=== PATIENT | male | born 1950 | race Caucasian/White ===

== ENCOUNTER 2020-06-26 06:34 | Outpatient (REF) | payer MEDICARE, SELFPAY ==
[2020-06-26 07:10] LABS: MANUAL DIFF FLAG NO
[2020-06-26 07:23] LABS: Basophils Percent Auto 0.2 % (0-2); Eosinophils Percent Auto 0.5 % (0-4); Hematocrit 42.1 % (42-52); Hemoglobin 14.4 g/dl (14.0-18.0); Imm Gran Abs Auto 0.02 X10*3/uL (0.00-0.03); Imm Gran Pct Auto 0.3 % (0.0-0.4); Lymphocytes Absolute Auto 1.4 X10*3/uL (1.2-4.9); Lymphocytes Percent Auto 22.2 % (20-40); Mean Corpuscular HGB Conc 34.2 g/dl (31.0-36.0); Mean Corpuscular Hemoglobin 31.5 pg (27.0-33.0); Mean Corpuscular Volume 92.1 fL (80-98); Mean Platelet Volume 8.9 fL (9.4-12.4); Monocytes Absolute Auto 0.6 X10*3/uL (0.1-1.2); Monocytes Percent Auto 9.1 % (2-11); Neutrophils Absolute Auto 4.4 X10*3/uL (2.0-8.3); Neutrophils Percent Auto 67.7 % (45-73); Platelet Count 237 X10*3/uL (160-400); Red Blood Count 4.57 X10*6/uL (4.60-5.80); White Blood Count 6.5 X10*3/uL (4.8-10.8)
[2020-06-26 07:35] LABS: Alanine Aminotransferase 30 U/L (0-40); Albumin Level 4.3 g/dL (3.5-5.0); Alkaline Phosphatase 79 U/L (39-117); Anion Gap 13 (12-20); Aspartate Amino Transferase 20 U/L (5-37); Bilirubin Total 1.3 mg/dL (0.0-1.0); Blood Urea Nitrogen 14 mg/dL (9-16); Calcium 8.6 mg/dL (8.4-10.2); Carbon Dioxide 26 mmol/L (22-29); Chloride 97 mmol/L (96-108); Cholesterol 132 mg/dL; Estimated Glomerular Filt Rate > 60; Glucose Fasting 139 mg/dL (60-99); HDL Cholesterol 45 mg/dL; LDL Cholesterol Calculated 70 mg/dl; Potassium 4.6 mmol/l (3.3-5.1); Sodium 131 mmol/L (135-145); Total Protein 7.1 g/dL (6.5-8.0); Triglycerides 87 mg/dL
[2020-06-26 07:36] LABS: Estimated Average Glucose 126 mg/dL
[2020-06-26 08:05] LABS: Prostate Specific Antigen Scr 0.45 ng/mL (<0.05-4.0); TSH reflex Free T4 0.75 mIU/mL (0.32-4.0)
[2020-06-26 08:27] LABS: Creatinine Urine 119.89 mg/dL
== END 2020-06-26 06:35 | disposition home or self-care (01) ==
LOC: HO.LAB 06:34
PROVIDERS: Visit Provider Physician Assistant
DX: I10 Essential (primary) hypertension (principal); R73.03 Prediabetes; Z12.5 Encounter for screening for malignant neoplasm of prostate
CPT/HCPCS: 36415; 80053; 80061; 82043; 83036; 84153; 84443; 85025

== ENCOUNTER 2020-07-26 08:40 | Outpatient (REF) | payer MEDICARE, SELFPAY ==
--- NOTE | 2020-07-26 08:47 | US_ITS ---
EXAMINATION: US ABDOMINAL AORTIC CLINICAL INFORMATION: Screening COMPARISON: CT 10/14/2010 TECHNIQUE: Real-time ultrasound and Doppler techniques (integrating B-mode 2-D vascular images, Doppler spectral analysis and color flow Doppler imaging) were utilized to interrogate the abdominal aorta. FINDINGS: Proximal aorta: 2.8 cm AP; 3.2 cm transverse. Middle aorta: 2.2 cm AP; 2.2 cm transverse. Distal aorta: 1.9 cm AP; 2.0 cm transverse. Right common iliac artery: 1.5 x 1.6 cm. Left common iliac artery: 1.2 x 1.1 cm ADDITIONAL FINDINGS: None. US/US abdominal aortic aneurysm IMPRESSION: No ultrasound evidence of abdominal aortic aneurysm.
== END 2020-07-26 08:41 | disposition home or self-care (01) ==
LOC: HO.US 08:40
PROVIDERS: PCP Physician Assistant; Visit Provider Physician Assistant
DX: Z13.6 Encounter for screening for cardiovascular disorders (principal); I10 Essential (primary) hypertension; Z87.891 Personal history of nicotine dependence
CPT/HCPCS: 76706

== ENCOUNTER 2021-01-16 06:16 | Outpatient (REF) | payer MEDICARE, SELFPAY ==
[2021-01-16 07:10] LABS: Hematocrit 43.8 % (42-52); Hemoglobin 14.8 g/dl (14.0-18.0); Mean Corpuscular HGB Conc 33.8 g/dl (31.0-36.0); Mean Corpuscular Hemoglobin 31.6 pg (27.0-33.0); Mean Corpuscular Volume 93.4 fL (80-98); Mean Platelet Volume 9.2 fL (9.4-12.4); Platelet Count 220 X10*3/uL (160-400); Red Blood Count 4.69 X10*6/uL (4.60-5.80); White Blood Count 4.8 X10*3/uL (4.8-10.8)
[2021-01-16 07:28] LABS: Alanine Aminotransferase 28 U/L (0-40); Albumin Level 4.3 g/dL (3.5-5.0); Alkaline Phosphatase 84 U/L (39-117); Anion Gap 13 (12-20); Aspartate Amino Transferase 26 U/L (5-37); Blood Urea Nitrogen 16 mg/dL (9-16); Calcium 9.5 mg/dL (8.4-10.2); Carbon Dioxide 27 mmol/L (22-29); Chloride 100 mmol/L (96-108); Cholesterol 155 mg/dL; Estimated Glomerular Filt Rate > 60; Glucose Fasting 130 mg/dL (60-99); HDL Cholesterol 40 mg/dL; LDL Cholesterol Calculated 91 mg/dl; Potassium 5.3 mmol/L (3.3-5.1); Sodium 135 mmol/L (135-145); Total Protein 7.4 g/dL (6.5-8.0); Triglycerides 124 mg/dL
[2021-01-16 07:48] LABS: Estimated Average Glucose 131 mg/dL; Hemoglobin A1c % 6.2 %
[2021-01-16 07:52] LABS: TSH reflex Free T4 0.97 uIU/mL (0.32-4.0)
== END 2021-01-16 06:17 | disposition home or self-care (01) ==
LOC: HO.LAB 06:16
PROVIDERS: PCP Physician Assistant; Visit Provider Physician Assistant
DX: Z12.5 Encounter for screening for malignant neoplasm of prostate (principal); I10 Essential (primary) hypertension; R73.03 Prediabetes; E66.09 Other obesity due to excess calories; Z68.34 Body mass index [BMI] 34.0-34.9, adult
CPT/HCPCS: 36415; 80053; 80061; 83036; 84153; 84443; 85027

== ENCOUNTER 2021-06-04 08:14 | Outpatient (REF) | payer MEDICARE, SELFPAY ==
--- NOTE | ~2021-06-04 | XR_ITS ---
EXAMINATION: XR knee RT 2V CLINICAL INFORMATION: Reason for Exam M17.11 - Unilateral primary osteoarthritis, right knee COMPARISON: None available at the time of this dictation. TECHNIQUE: Frontal and lateral FINDINGS: BONES: No fracture or dislocation is present. JOINTS: Narrowing of joint spaces and developed osteophytes from the edges of articular surfaces suggest degenerative osteoarthritis. There are degenerative osteoarthritic changes of the patellofemoral joint, there is a small knee joint effusion. SOFT TISSUE: Normal XR/XR knee RT 2V IMPRESSION: Early advanced degenerative osteoarthritis involving primarily medial compartment. Small knee joint effusion.
== END 2021-06-04 08:15 | disposition home or self-care (01) ==
LOC: HO.XRAY 08:14
PROVIDERS: PCP Physician Assistant; Visit Provider Physician Assistant
DX: M17.11 Unilateral primary osteoarthritis, right knee (principal)
CPT/HCPCS: 73560

== ENCOUNTER → 2021-07-08 10:59 | Outpatient (BNVA) | payer MEDICARE, SELFPAY | PROVIDERS: PCP Physician Assistant; Visit Provider Orthopaedic Surgery | DX: M17.11 Unilateral primary osteoarthritis, right knee (principal) | CPT/HCPCS: 20610; 99202; J1100 ==

== ENCOUNTER 2021-08-02 07:11 | Outpatient (REF) | payer MEDICARE, SELFPAY ==
[2021-08-02 07:48] LABS: Hematocrit 41.4 % (42.0-52.0); Hemoglobin 14.2 g/dl (14.0-18.0); Mean Corpuscular HGB Conc 34.3 g/dl (31.0-36.0); Mean Corpuscular Hemoglobin 31.3 pg (27.0-33.0); Mean Corpuscular Volume 91.4 fL (80.0-98.0); Mean Platelet Volume 9.2 fL (9.4-12.4); Platelet Count 201 X10*3/uL (160-400); Red Blood Count 4.53 X10*6/uL (4.60-5.80); Red Cell Distribution Width 12.1 % (11.0-16.0); White Blood Count 4.8 X10*3/uL (4.8-10.8)
[2021-08-02 08:25] LABS: Estimated Average Glucose 140 mg/dL; Hemoglobin A1c % 6.5 %
[2021-08-02 08:26] LABS: Creatinine Urine 123.19 mg/dL; Microalbum/Creatinine Ratio Ur 42.2 ug/mg cr
[2021-08-02 08:31] LABS: Alanine Aminotransferase 21 U/L (0-40); Albumin Level 4.1 g/dL (3.5-5.0); Alkaline Phosphatase 91 U/L (39-117); Anion Gap 10 (12-20); Aspartate Amino Transferase 17 U/L (5-37); Bilirubin Total 0.9 mg/dL (0.0-1.0); Blood Urea Nitrogen 15 mg/dL (9-16); Calcium 9.1 mg/dL (8.4-10.2); Carbon Dioxide 28 mmol/L (22-29); Chloride 102 mmol/L (96-108); Cholesterol 165 mg/dL; Estimated Glomerular Filt Rate > 60; Glucose Fasting 132 mg/dL (60-99); HDL Cholesterol 48 mg/dL; LDL Cholesterol Calculated 96 mg/dl; Potassium 4.6 mmol/L (3.3-5.1); Sodium 135 mmol/L (135-145); Total Protein 7.1 g/dL (6.5-8.0); Triglycerides 108 mg/dL
[2021-08-02 08:43] LABS: Prostate Specific Antigen Scr 0.61 ng/mL (<0.05-4.0); TSH reflex Free T4 2.99 uIU/mL (0.32-4.0)
== END 2021-08-02 07:12 | disposition home or self-care (01) ==
LOC: HO.LAB 07:11
PROVIDERS: PCP Physician Assistant; Visit Provider Physician Assistant
DX: Z12.5 Encounter for screening for malignant neoplasm of prostate (principal); E66.09 Other obesity due to excess calories; Z68.34 Body mass index [BMI] 34.0-34.9, adult; I10 Essential (primary) hypertension; R73.03 Prediabetes
CPT/HCPCS: 36415; 80053; 80061; 82043; 83036; 84153; 84443; 85027

== ENCOUNTER 2023-03-24 13:20 | Outpatient (AMB) | payer MEDICARE, SELFPAY ==
--- NOTE | 2023-03-24 13:27 | MHC.PC.OV ---
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 Accompanied by: Self / Same As Patient Allergies Pneumonia vaccine Adverse Reaction (Intermediate, Uncoded 03/24/23 13:42) Itching Medication List - Last Reconciled 03/24/23 by Adam Gao PA-C lisinopril 40 mg PO DAILY Tobacco use date assessed: 03/24/23 Fall risk assessment: No Falls in past year Last assessed Fall Risk: 03/24/23 Dental Screening Dental Screen Date: 03/24/23 Did you have a dental visit in the last 12 months?: No Did you have a dental problem in the last 6 months where you did not have access to dental care?: No Was dental information given to patient?: No (Pt does not have dental insurance) HPI PE HPI Details José Luis is here today for an follow-up Patient has a pmhx significant for HTN, type 2 diabetes, Vit D def. .. HTN: Blood pressure in office today slightly elevated. He does note is likely due to his weight gain. Does not regularly monitor his blood pressure at home and is willing to start doing so. Patient denies any chest pain, shortness of breath, headaches. .. Obesity: Patient does understand his BMI is well over 30 and will work on being more physically active and adapting to better eating habits to reduce his weight .. Type 2 diabetes: Today A1c- 6.8 , most recent fasting blood sugar 130, offered patient metformin though continues to decline my offers. Patient would like to work on lifestyle and decreasing carbohydrates in his diet.. .. VAccin: UTD COVID , flu vaccine., up-to-date with tetanus and pneumonia Vac. .. colonoscopy: Was done in [address] Alba, needs repeat 2022 [facility] Medical History (Updated 03/24/23 @ 14:01 by Adam Gao PA-C) Osteoarthritis of right knee Former smoker Normal colonoscopy Surgical History History of lumbar surgery Family History Father CVD (cardiovascular disease) Mother CVD (cardiovascular disease) Family/Other Heart disease Social History Housing: House Alcohol intake: never Patient Tobacco Use Status: Never used Tobacco e-Cigarette/Vaping Use: Never Used service: No Current occupational status: retired Cognitive needs: No Hearing needs: No Vision needs: No Questionnaire PHQ-9 Over the last 2 weeks, how often have you been bothered by any of the following problems? 1. Little interest or pleasure in doing things: not at all 2. Feeling down, depressed, or hopeless: not at all 3. Trouble falling or staying asleep, or sleeping too much: not at all 4. Feeling tired or having little energy: not at all 5. Poor appetite or overeating: not at all 6. Feeling bad about yourself - or that you are a failure or have let yourself or your family down: not at all 7. Trouble concentrating on things, such as reading the newspaper or watching television: not at all 8. Moving or speaking so slowly that other people could have noticed. Or the opposite - being so fidgety or restless that you have been moving around a lot more than usual: not at all 9. Thoughts that you would be better off or of hurting yourself in some way: not at all Total score: 0 Depression Screening Interpretation: Negative 02447 - PHQ-9 Billing: Yes Source: Developed by Drs. Lavell Lofton, Cheryl Sánchez, Avi Walker and colleagues, with an educational jose l from [employer]. Thrive Questionnaire Date Thrive assessed: 03/24/23 I am a: Patient What is your living situation today?: I have a steady place to live Within the past 12 months, did the food you bought not last and you didn't have the money to get more?: Never true Within the past 12 months, did you worry whether your food would run out before you got money to buy more?: Never true Do you have trouble paying for medicines?: No Do you have trouble getting transportation to medical appointments?: No Do you have trouble paying your heating and electricity bill?: No Do you have trouble taking care of your child, family member or friend?: No Do you have trouble with day-to-day activities such as bathing, preparing meals, shopping, managing finances, etc.?: No Are you currently unemployed and looking for a job?: No Are you interested in more education?: No Please select the resources that you would like help with: None Currently or been in a relationship where the following occur: no concerns reported AUDIT C Alcohol Use Questionnaire (AUDIT-C) 1. How often do you have a drink containing alcohol?: Never 3. How often do you have six or more drinks on one occasion?: Never Total Score: 0 RODRÍGUEZ-7 AMB Questionnaire RODRÍGUEZ-7 Date RODRÍGUEZ - 7 assessed: 03/24/23 Feeling nervous, anxious, or on edge: 0 = Not at all Not being able to stop or control worryin = Not at all Worrying too much about different things: 0 = Not at all Trouble relaxin = Not at all Being so restless that it is hard to sit still: 0 = Not at all Becoming easily annoyed or irritable: 0 = Not at all Feeling afraid as if something awful might happen: 0 = Not at all Total RODRÍGUEZ-7 score (0-4 normal; 5-9 mild; 10-14 moderate; 15-21 severe): 0 Source: Developed by Drs. Lavell Lofton, Cheryl Sánchez, Avi Walker and colleagues, with an educational jose l from [employer]. RODRÍGUEZ-7 Assessment Billing RODRÍGUEZ-7 Assessment Tool: RODRÍGUEZ-7 Assessment [id number] Review of Systems Const Denies body aches, Denies chills, Denies excessive sweating, Denies fatigue, Denies fever(s) and Denies headache(s) Eyes Denies blurry vision ENT Denies dysphagia, Denies vertigo, Denies dizziness, Denies headache(s), Denies hearing loss and Denies tinnitus Card Denies chest pain, Denies chest pain with activity, Denies syncope, Denies irregular heart rhythm and Denies dyspnea Resp Denies chest congestion, Denies cough, Denies hemoptysis, Denies dyspnea and Denies wheezing GI Denies abdominal pain, Denies melena, Denies hematochezia, Denies coffee ground emesis, Denies dysphagia, Denies diarrhea, Denies nausea and Denies vomiting Denies difficulty urinating, Denies dysuria, Denies urinary frequency, Denies urinary hesitancy and Denies urinary urgency Musc Denies arthralgias, Denies limited range of motion, Denies muscle cramps and Denies muscle weakness Skin/Breast Denies rash and Denies skin ulcer Neuro Denies Abnormal speech present, Denies confusion, Denies vertigo, Denies dizziness, Denies syncope, Denies headache(s), Denies memory loss and Denies seizure-like activity Psych Denies anxiety, Denies confusion, Denies depression, Denies memory loss, Denies panic attacks and Denies paranoia Endo Denies excessive sweating, Denies fatigue, Denies flushing, Denies polydipsia and Denies polyuria Aller/Immun Denies wheezing Physical exam (Primary Care) Vital Signs: Last Vital Signs Pulse 90 03/24/23 13:28 BP 148/78 H 03/24/23 13:28 Pulse Ox 97 03/24/23 13:28 Oxygen Delivery Method Room Air 03/24/23 13:28 BMI result Body Mass Index 36.7 BMI Assessment/Plan discussion: High Tobacco/Smoking Status: Tobacco use Status Tobacco use date assessed 03/24/23 03/24/23 13:37 Patient Tobacco Use Status Never used Tobacco 03/24/23 13:37 e-Cigarette/Vaping Use Never Used 03/24/23 13:37 PHQ-9: PHQ-9 Score PHQ-9: Total score 0 03/24/23 13:37 Depression Screening Interpretation: Negative Thrive Assessment: Date of Thrive Assessment Date Thrive assessed 03/24/23 03/24/23 13:37 Currently or been in a relationship where the following occur: no concerns reported Const Other: Obese General: cooperative, comfortable, no acute distress, alert and awake; No confusion Orientation/consciousness: oriented to person, oriented to place, patient oriented x3 and No confusion HENMT Head: Yes normocephalic Ears: external ears normal and TM's normal bilaterally Face and sinus: No sinus tenderness Mouth: Normal oral and palatal mucosa present and tongue normal Teeth and gingiva: dentition normal and gingiva normal Throat: Yes posterior oropharynx normal, Yes tonsils normal and Yes uvula midline Eyes Conjunctivae: conjunctivae normal Sclerae: sclerae normal Pupils: Equal, round and reactive pupils present EOM: EOMs intact bilaterally Direct Ophthalmoscopy: No no photophobia Neck Neck: Yes no lymphadenopathy, No tender and Yes no JVD Thyroid: Thyroid normal Carotids: no bruits Chest Chest palpation & inspection: no tenderness Resp Effort & Inspection: normal respiratory effort, no audible wheezes, not labored and no stridor Auscultation: no crackles, no rales, no rhonchi and no wheezes Cardio Jugular venous distension: no JVD Rate: regular rate, not bradycardic and not tachycardic Rhythm: regular rhythm Bruits: no carotid bruits Peripheral pulses: Peripheral pulses 2+ throughout GI Inspection: Yes normal to inspection, No abdominal wall ecchymosis and No visible herniation Palpation (GI): Soft to palpation, nontender, no guarding, not rigid and No hepatosplenomegaly present Auscultation: normoactive bowel sounds General: Yes no CVA tenderness Back/Spine/Pelvis Back: no CVA tenderness and No back tenderness Cervical Spine: cervical ROM normal Thoracic/Lumbar Spine: thoracic and lumbar spine normal to inspection, straight leg raise negative bilaterally, No thoraco-lumbar ROM limited and No lumbar spinal tenderness Skin Lesions: no lesions Rashes: no rashes Wounds: no wounds Neuro General: oriented to person, oriented to place, patient oriented x3, CN's II-XI intact bilaterally and No confusion Cranial nerves: Yes Equal, round and reactive pupils present and Yes Normal accommodation reflex present Cognition (Neuro): normal cognition Speech: No Abnormal speech present Gait exam (Neuro): Normal gait present Motor exam (neuro): 5/5 motor strength present throughout Extrem Right upper extremity: full ROM; no cyanosis Left upper extremity: full ROM; no cyanosis Right lower extremity: no edema Left lower extremity: no edema Psych Appearance: grossly normal Mental Status: mental status grossly normal Affect: normal affect Attitude: cooperative Thought process: Normal thought process present Results AMB Hemoglobin A1c AMB Hemoglobin A1c 6.8 % Last Edit by DENIS Delgado on 03/24/23 13:37 Results Reviewed Results Reviewed: Laboratory Last Values Hgb A1c (Clinic) 6.8 % (4.0-6.0) H 03/24/23 13:25 Assessment and Plan Assessment & Plan (1) Annual physical exam: Code(s): Z00.00 - Encounter for general adult medical examination without abnormal findings (2) HTN (hypertension): Code(s): I10 - Essential (primary) hypertension Qualifiers: Hypertension type: essential hypertension Qualified Code(s): I10 - Essential (primary) hypertension Plan: Patient's blood pressure elevated today in office. Patient would like to work on lifestyle modifications and low-sodium diet. Will continue lisinopril 40 mg at will dose. Advised to monitor blood pressure at home with goal blood pressure to be below 140/90 and if remains elevated will consider adding hydrochlorothiazide. (3) Obese: Code(s): E66.9 - Obesity, unspecified Qualifiers: Obesity type: due to excess calories Obesity classification: adult class 1 (BMI 30 - 34.9) Serious obesity comorbidity presence: without serious comorbidity Body mass index: BMI 34.0-34.9 Qualified Code(s): E66.09 - Other obesity due to excess calories; Z68.34 - Body mass index [BMI] 34.0-34.9, adult Plan: Patient does understand his BMI is over 30 will work on being more physically active and adapting to better eating habits to reduce his weight. (4) DMII (diabetes mellitus, type 2): Code(s): E11.9 - Type 2 diabetes mellitus without complications Qualifiers: Diabetes mellitus alf insulin use: without creeler use Diabetes mellitus complication status: with hyperglycemia Qualified Code(s): E11.65 - Type 2 diabetes mellitus with hyperglycemia Plan: Patient's A1c today is 6.8 from 6.5. Advised on starting p.o. medication for his type 2 diabetes though patient adamantly declines. He would like to work on lifestyle modifications to reduce his sugars. Goal A1c is to be below 6.5 (5) Colon cancer screening: Code(s): Z12.11 - Encounter for screening for malignant neoplasm of colon Plan: Colon[place] [address] Alba. Normal results. Needs repeat screening colonoscopy. (6) HLD (hyperlipidemia): Code(s): E78.5 - Hyperlipidemia, unspecified Qualifiers: Hyperlipidemia type: mixed hyperlipidemia Qualified Code(s): E78.2 - Mixed hyperlipidemia Plan: Will check lipid panel to assure LDL below goal of 100 Orders: Orders AMB Hemoglobin A1c Today R73.03 - Prediabetes Microalbumin, Random (w Creat) Today E11.9 - Type 2 diabetes mellitus without complications Complete Blood Count no Diff Today E11.9 - Type 2 diabetes mellitus without complications Lipid Panel Today E78.2 - Mixed hyperlipidemia Comprehensive Otis. Panel Fast Today E11.9 - Type 2 diabetes mellitus without complications Referrals Gastroenterology Referral Z12.11 - Encounter for screening for malignant neoplasm of colon Coding Level of Care Code Est Pt Prev Care >65y([id number]) Diagnoses Annual physical exam Z00.00 Essential hypertension I10 Hypertension type: essential hypertension Class 1 obesity due to excess calories without serious comorbidity with body mass index (BMI) of 34.0 to 34.9 in adult E66.09; Z68.34 Obesity type: due to excess calories Obesity classification: adult class 1 (BMI 30 - 34.9) Serious obesity comorbidity presence: without serious comorbidity Body mass index: BMI 34.0-34.9 Type 2 diabetes mellitus with hyperglycemia, without long-term current use of insulin E11.65 Diabetes mellitus alf insulin use: without alf use Diabetes mellitus complication status: with hyperglycemia Colon cancer screening Z12.11 Mixed hyperlipidemia E78.2 Hyperlipidemia type: mixed hyperlipidemia Additional Codes RODRÍGUEZ-7 Assessment Billing - RODRÍGUEZ-7 Assessment Tool: RODRÍGUEZ-7 Assessment [id number] ([id number])
[2023-03-24 13:28] VITALS: BP 148/78; PULSE 90; O2SAT 97; BMI 36.7
== END 2023-03-24 13:59 | disposition home or self-care (01) ==
PROVIDERS: PCP Physician Assistant; Visit Provider Physician Assistant
DX: Z00.00 Encounter for general adult medical examination without abnormal findings (principal); I10 Essential (primary) hypertension; E66.09 Other obesity due to excess calories; Z68.34 Body mass index [BMI] 34.0-34.9, adult; E11.65 Type 2 diabetes mellitus with hyperglycemia; R73.03 Prediabetes; E78.2 Mixed hyperlipidemia
CPT/HCPCS: 83036; 99397

== ENCOUNTER 2023-08-05 06:00 | Outpatient (REF) | payer MEDICARE, SELFPAY ==
[2023-08-05 07:56] LABS: Hematocrit 42.7 % (42.0-52.0); Hemoglobin 14.5 g/dl (14.0-18.0); Mean Corpuscular Hemoglobin 30.9 pg (27.0-33.0); Mean Platelet Volume 9.7 fL (9.4-12.4); Platelet Count 215 X10*3/uL (160-400); Red Blood Count 4.69 X10*6/uL (4.60-5.80); Red Cell Distribution Width 12.3 % (11.0-16.0); White Blood Count 5.5 X10*3/uL (4.8-10.8)
[2023-08-05 08:25] LABS: Alanine Aminotransferase 23 U/L (0-40); Albumin Level 4.1 g/dL (3.5-5.0); Alkaline Phosphatase 87 U/L (39-117); Anion Gap 12 (12-20); Aspartate Amino Transferase 18 U/L (5-37); Bilirubin Total 0.8 mg/dL (0.0-1.0); Blood Urea Nitrogen 16 mg/dL (9-16); Calcium 9.1 mg/dL (8.4-10.2); Carbon Dioxide 25 mmol/L (22-29); Chloride 102 mmol/L (96-108); Cholesterol 158 mg/dL (<200); Estimated Glomerular Filt Rate > 60; Glucose Fasting 138 mg/dL (60-99); HDL Cholesterol 48 mg/dL (>40); LDL Cholesterol Calculated 94 mg/dL (<100); Potassium 4.3 mmol/L (3.3-5.1); Sodium 135 mmol/L (135-145); Total Protein 7.4 g/dL (6.5-8.0); Triglycerides 81 mg/dL (<150)
[2023-08-05 08:29] LABS: Creatinine Urine 138.94 mg/dL; Microalbum/Creatinine Ratio Ur 38.1 ug/mg cr (<30)
== END 2023-08-05 06:01 | disposition home or self-care (01) ==
LOC: HO.LAB 06:00
PROVIDERS: PCP Physician Assistant; Visit Provider Physician Assistant
DX: E11.9 Type 2 diabetes mellitus without complications (principal); E78.2 Mixed hyperlipidemia
CPT/HCPCS: 36415; 80053; 80061; 82043; 82570; 85027

== ENCOUNTER 2023-08-11 11:09 | Outpatient (AMB) | payer MEDICARE, SELFPAY ==
--- NOTE | 2023-08-11 11:19 | MHC.PC.OV ---
Vital Signs 08/11/23 11:20 08/11/23 11:42 Height 5 ft 4 in Weight 225 lb 4 oz BMI 38.7 BP 172/90 H 158/90 H Blood Pressure Location Lt brachial Position Sitting Pulse 75 Pulse Source Pulse Oximeter Pulse Oximetry (%) 98 Oxygen Delivery Method Room Air Intake Visit Reasons: f/u DMII/ HTN Intake Note: Patient is here to follow up on DMII and HTN. 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 Accompanied by: Spouse Allergies Pneumonia vaccine Adverse Reaction (Intermediate, Uncoded 08/11/23 11:28) Itching Medication List - Last Reconciled 08/11/23 by Adam Gao PA-C lisinopril 40 mg PO DAILY Tobacco use date assessed: 08/11/23 Fall risk assessment: No Falls in past year Last assessed Fall Risk: 08/11/23 Dental Screening Dental Screen Date: 08/11/23 Did you have a dental visit in the last 12 months?: Yes Did you have a dental problem in the last 6 months where you did not have access to dental care?: No Was dental information given to patient?: Patient has dentist HPI f/u DMII/ HTN HPI Details José Luis is here today for an follow-up Patient has a pmhx significant for HTN, type 2 diabetes, Vit D def. .. HTN: Blood pressure in office today elevated. He does note is likely due to his weight gain. Does not regularly monitor his blood pressure at home and is willing to start doing so. Patient denies any chest pain, shortness of breath, headaches. PLAN: Willing to start hydrochlorothiazide for better control of his blood pressure .. Obesity: Patient does understand his BMI is well over 30 and will work on being more physically active and adapting to better eating habits to reduce his weight .. Type 2 diabetes: Today A1c- 6.6 , most recent fasting blood sugar 136, offered patient metformin though continues to decline my offers. Patient would like to work on lifestyle and decreasing carbohydrates in his diet.. Laboratory Tests 03/24/23 08/05/23 08/05/23 13:25 06:16 06:16 RBC 4.69 Creatinine 0.96 Fasting Glucose 138 H Hgb A1c (Clinic) 6.8 H Cholesterol 158 PFSH Medical History Osteoarthritis of right knee Former smoker Normal colonoscopy Surgical History History of lumbar surgery Family History Father CVD (cardiovascular disease) Mother CVD (cardiovascular disease) Family/Other Heart disease Social History Housing: House Alcohol intake: never Patient Tobacco Use Status: Never used Tobacco e-Cigarette/Vaping Use: Never Used service: No Current occupational status: retired Cognitive needs: No Hearing needs: No Vision needs: No Questionnaire PHQ-9 Over the last 2 weeks, how often have you been bothered by any of the following problems? 1. Little interest or pleasure in doing things: not at all 2. Feeling down, depressed, or hopeless: not at all 3. Trouble falling or staying asleep, or sleeping too much: not at all 4. Feeling tired or having little energy: not at all 5. Poor appetite or overeating: not at all 6. Feeling bad about yourself - or that you are a failure or have let yourself or your family down: not at all 7. Trouble concentrating on things, such as reading the newspaper or watching television: not at all 8. Moving or speaking so slowly that other people could have noticed. Or the opposite - being so fidgety or restless that you have been moving around a lot more than usual: not at all 9. Thoughts that you would be better off or of hurting yourself in some way: not at all Total score: 0 Depression Screening Interpretation: Negative Depression Screening Done: Yes 82246 - PHQ-9 Billing: Yes Source: Developed by Drs. Lavell Lofton, Cheryl Sánchez, Avi Walker and colleagues, with an educational jose l from [employer]. Thrive Questionnaire Date Thrive assessed: 08/11/23 I am a: Patient What is your living situation today?: I have a steady place to live Within the past 12 months, did the food you bought not last and you didn't have the money to get more?: Never true Within the past 12 months, did you worry whether your food would run out before you got money to buy more?: Never true Do you have trouble paying for medicines?: No Do you have trouble getting transportation to medical appointments?: No Do you have trouble paying your heating and electricity bill?: No Do you have trouble taking care of your child, family member or friend?: No Do you have trouble with day-to-day activities such as bathing, preparing meals, shopping, managing finances, etc.?: No Are you currently unemployed and looking for a job?: No Are you interested in more education?: No Please select the resources that you would like help with: None Currently or been in a relationship where the following occur: no concerns reported THRIVE Score: 0 RODRÍGUEZ-7 AMB Questionnaire RODRÍGUEZ-7 Date RODRÍGUEZ - 7 assessed: 08/11/23 Feeling nervous, anxious, or on edge: 0 = Not at all Not being able to stop or control worryin = Not at all Worrying too much about different things: 0 = Not at all Trouble relaxin = Not at all Being so restless that it is hard to sit still: 0 = Not at all Becoming easily annoyed or irritable: 0 = Not at all Feeling afraid as if something awful might happen: 0 = Not at all Total RODRÍGUEZ-7 score (0-4 normal; 5-9 mild; 10-14 moderate; 15-21 severe): 0 Source: Developed by Drs. Lavell Lofton, Cheryl Sánchez, Avi Walker and colleagues, with an educational jose l from [employer]. RODRÍGUEZ-7 Assessment Billing RODRÍGUEZ-7 Assessment Tool: RODRÍGUEZ-7 Assessment 10545 Review of Systems Const Denies headache(s) Eyes Denies loss of vision ENT Denies vertigo, Denies dizziness, Denies headache(s) and Denies sore throat Card Denies chest pain, Denies leg edema and Denies lightheadedness Resp Denies cough, Denies hemoptysis and Denies wheezing GI Denies abdominal pain, Denies melena, Denies constipation, Denies diarrhea and Denies vomiting Denies dysuria, Denies urinary frequency and Denies urinary urgency Musc Denies arthralgias, Denies joint swelling, Denies numbness and Denies tingling Neuro Denies Abnormal speech present, Denies behavioral changes, Denies vertigo, Denies dizziness, Denies headache(s), Denies loss of vision, Denies memory loss, Denies numbness and Denies tingling Psych Denies anxiety, Denies behavioral changes, Denies depression, Denies memory loss and Denies panic attacks Hair/Lymph Denies easy bleeding and Denies easy bruising Aller/Immun Denies wheezing Physical exam (Primary Care) Vital Signs: Last Vital Signs Pulse 75 08/11/23 11:20 BP 158/90 H 08/11/23 11:42 Pulse Ox 98 08/11/23 11:20 Oxygen Delivery Method Room Air 08/11/23 11:20 BMI result Body Mass Index 38.7 BMI Assessment/Plan discussion: High Tobacco/Smoking Status: Tobacco use Status Tobacco use date assessed 08/11/23 08/11/23 11:24 Patient Tobacco Use Status Never used Tobacco 08/11/23 11:24 e-Cigarette/Vaping Use Never Used 08/11/23 11:24 PHQ-9: PHQ-9 Score PHQ-9: Total score 0 08/11/23 11:29 Depression Screening Interpretation: Negative Thrive Assessment: Date of Thrive Assessment Date Thrive assessed 08/11/23 08/11/23 11:27 Currently or been in a relationship where the following occur: no concerns reported Const Other: Obese General: healthy appearing, no acute distress, alert and awake Nutritional Appearance: well nourished Orientation/consciousness: oriented to person, oriented to place and oriented to time HENMT Ears: TM's normal bilaterally General nose exam: Normal nasal mucous membranes and turbinates present Eyes Conjunctivae: conjunctivae normal Sclerae: sclerae normal Pupils: Equal, round and reactive pupils present Neck Neck: Yes no lymphadenopathy and Yes no JVD Thyroid: Thyroid normal Carotids: no bruits Resp Effort & Inspection: normal respiratory effort and not tachypneic Auscultation: no crackles, no rales, no rhonchi and no wheezes Cardio Rate: regular rate Rhythm: regular rhythm Heart sounds: no murmurs and normal S1 and S2 GI Palpation (GI): Soft to palpation, nontender, no hepatomegaly and no splenomegaly Auscultation: normal bowel sounds Skin General skin exam: no rashes or lesions noted and dry skin Neuro General: oriented to person, oriented to place and oriented to time Cranial nerves: Yes Equal, round and reactive pupils present Speech: No Abnormal speech present Gait exam (Neuro): Normal gait present Motor exam (neuro): no tremor noted Extrem Right upper extremity: full ROM Left upper extremity: full ROM Right lower extremity: full ROM; no edema Left lower extremity: full ROM; no edema Psych Mental Status: mental status grossly normal Speech and movement: Normal speech and movement present Affect: normal affect Attitude: cooperative Thought process: Normal thought process present Results AMB Hemoglobin A1c AMB Hemoglobin A1c 6.6 % Last Edit by DENIS Delgado on 08/11/23 11:27 Results Reviewed Results Reviewed: Laboratory Last Values Hgb A1c (Clinic) 6.6 % (4.0-6.0) H 08/11/23 11:14 Assessment and Plan Assessment & Plan (1) DMII (diabetes mellitus, type 2): Code(s): E11.9 - Type 2 diabetes mellitus without complications Qualifiers: Diabetes mellitus complication status: with hyperglycemia Diabetes mellitus senior care insulin use: without senior care use Qualified Code(s): E11.65 - Type 2 diabetes mellitus with hyperglycemia Plan: Patient's A1c in diabetic range. Offered oral anti-hyperglycemic medication though he declines at this time would like to work on lifestyle modification and dietary modifications. Goal A1c is to be below 6.5 (2) HLD (hyperlipidemia): Code(s): E78.5 - Hyperlipidemia, unspecified Qualifiers: Hyperlipidemia type: mixed hyperlipidemia Qualified Code(s): E78.2 - Mixed hyperlipidemia Plan: Patient does have a history of elevated cholesterol. Most recent lipid panel showing appropriate total cholesterol and LDL. . Will recheck his fasting lipid with goal LDL to be below 100. (3) Obese: Code(s): E66.9 - Obesity, unspecified Qualifiers: Body mass index: BMI 34.0-34.9 Obesity classification: adult class 1 (BMI 30 - 34.9) Obesity type: due to excess calories Serious obesity comorbidity presence: without serious comorbidity Qualified Code(s): E66.09 - Other obesity due to excess calories; Z68.34 - Body mass index [BMI] 34.0-34.9, adult Plan: Patient does understand his BMI is above 30 will work on lifestyle and dietary modifications to reduce his weight. (4) HTN (hypertension): Code(s): I10 - Essential (primary) hypertension Qualifiers: Hypertension type: essential hypertension Qualified Code(s): I10 - Essential (primary) hypertension Plan: Patient's blood pressure significantly elevated today in office. He is agreeable to add on hydrochlorothiazide 12.5 mg to his blood pressure med regime. Advised to monitor blood pressure at home with goal blood pressure be below 140/90 Orders: Orders AMB Hemoglobin A1c 08/11/23 E11.9 - Type 2 diabetes mellitus without complications Medications: New hydrochlorothiazide 12.5 mg PO DAILY 90 days 90 tabs 1RF I10 - Essential (primary) hypertension Coding Level of Care Code Est Pt Level 4 (69698) Diagnoses Type 2 diabetes mellitus with hyperglycemia, without long-term current use of insulin E11.65 Diabetes mellitus complication status: with hyperglycemia Diabetes mellitus watermaster insulin use: without watermaster use Mixed hyperlipidemia E78.2 Hyperlipidemia type: mixed hyperlipidemia Class 1 obesity due to excess calories without serious comorbidity with body mass index (BMI) of 34.0 to 34.9 in adult E66.09; Z68.34 Body mass index: BMI 34.0-34.9 Obesity classification: adult class 1 (BMI 30 - 34.9) Obesity type: due to excess calories Serious obesity comorbidity presence: without serious comorbidity Essential hypertension I10 Hypertension type: essential hypertension Additional Codes RODRÍGUEZ-7 Assessment Billing - RODRÍGUEZ-7 Assessment Tool: RODRÍGUEZ-7 Assessment 25517 ([id number])
[2023-08-11 11:20] VITALS: BP 172/90; PULSE 75; O2SAT 98; BMI 38.7
[2023-08-11 11:42] VITALS: BP 158/90
== END 2023-08-11 11:46 | disposition home or self-care (01) ==
PROVIDERS: PCP Physician Assistant; Visit Provider Physician Assistant
DX: E11.9 Type 2 diabetes mellitus without complications (principal)
CPT/HCPCS: 83036; 99214

== ENCOUNTER 2023-10-15 09:27 | Outpatient (AMB) | payer MEDICARE, SELFPAY ==
[2023-10-15 09:40] VITALS: BP 170/78; PULSE 78; O2SAT 96; BMI 38.8
--- NOTE | 2023-10-15 09:40 | A.OFFPC_ITS ---
Vital Signs 10/15/23 09:40 Height 5 ft 4 in Weight 226 lb BMI 38.8 BP 170/78 H Blood Pressure Location Lt brachial Position Sitting Pulse 78 Pulse Source Pulse Oximeter Pulse Oximetry (%) 96 Oxygen Delivery Method Room Air Intake Visit Reasons: dizziness, vomiting, diarrhea Intake Note: Pt presents with flu-like symptoms including vomiting, diarrhea, dizziness, body aches, and night sweats since Thursday. 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 He reports over last 4 days having nausea, vomiting and diarrhea, myalgias. He reports his symptoms mostly resolved now. He does report other folks in his family with similar symptoms. He has no able to keep food and water. Unfortunately blood pressure remains elevated today in office. He was to start amlodipine 2 mg though has not started this medication as of yet. [facility] Medical History Osteoarthritis of right knee Former smoker Normal colonoscopy Surgical History History of lumbar surgery Family History Father CVD (cardiovascular disease) Mother CVD (cardiovascular disease) Family/Other Heart disease Social History Housing: House Alcohol intake: never Patient Tobacco Use Status: Never used Tobacco e-Cigarette/Vaping Use: Never Used service: No Current occupational status: retired Cognitive needs: No Hearing needs: No Vision needs: No Questionnaire Thrive Questionnaire Date Thrive assessed: 08/11/23 RODRÍGUEZ-7 AMB Questionnaire RODRÍGUEZ-7 Date RODRÍGUEZ - 7 assessed: 08/11/23 Source: Developed by Drs. Lavell Lofton, Cheryl Sánchez, Avi Walker and colleagues, with an educational jose l from [employer]. Review of Systems Const Denies headache(s) Eyes Denies loss of vision ENT Denies vertigo, Reports dizziness, Denies headache(s) and Denies sore throat Card Denies chest pain, Denies leg edema and Denies lightheadedness Resp Denies cough, Denies hemoptysis and Denies wheezing GI Denies abdominal pain, Denies melena, Denies constipation, Reports diarrhea, Reports nausea and Reports vomiting Denies dysuria, Denies urinary frequency and Denies urinary urgency Musc Denies arthralgias, Denies joint swelling, Denies numbness and Denies tingling Neuro Denies Abnormal speech present, Denies behavioral changes, Denies vertigo, Reports dizziness, Denies headache(s), Denies loss of vision, Denies memory loss, Denies numbness and Denies tingling Psych Denies anxiety, Denies behavioral changes, Denies depression, Denies memory loss and Denies panic attacks Hair/Lymph Denies easy bleeding and Denies easy bruising Aller/Immun Denies wheezing Physical exam (Primary Care) Vital Signs: Last Vital Signs Pulse 78 10/15/23 09:40 BP 170/78 H 10/15/23 09:40 Pulse Ox 96 10/15/23 09:40 Oxygen Delivery Method Room Air 10/15/23 09:40 BMI result Body Mass Index 38.8 Tobacco/Smoking Status: Tobacco use Status Tobacco use date assessed 08/11/23 10/15/23 09:46 Patient Tobacco Use Status Never used Tobacco 10/15/23 09:46 e-Cigarette/Vaping Use Never Used 10/15/23 09:46 Thrive Assessment: Date of Thrive Assessment Date Thrive assessed 08/11/23 10/15/23 09:46 Const General: healthy appearing, no acute distress, alert and awake Nutritional Appearance: well nourished Orientation/consciousness: oriented to person, oriented to place and oriented to time HENMT Ears: TM's normal bilaterally General nose exam: Normal nasal mucous membranes and turbinates present Eyes Conjunctivae: conjunctivae normal Sclerae: sclerae normal Pupils: Equal, round and reactive pupils present Neck Neck: Yes no lymphadenopathy and Yes no JVD Thyroid: Thyroid normal Carotids: no bruits Resp Effort & Inspection: normal respiratory effort and not tachypneic Auscultation: no crackles, no rales, no rhonchi and no wheezes Cardio Rate: regular rate Rhythm: regular rhythm Heart sounds: no murmurs and normal S1 and S2 GI Palpation (GI): Soft to palpation, nontender, no hepatomegaly and no splenomegaly Auscultation: normal bowel sounds Skin General skin exam: no rashes or lesions noted and dry skin Neuro General: oriented to person, oriented to place and oriented to time Cranial nerves: Yes Equal, round and reactive pupils present Speech: No Abnormal speech present Gait exam (Neuro): Normal gait present Motor exam (neuro): no tremor noted Extrem Right upper extremity: full ROM Left upper extremity: full ROM Right lower extremity: full ROM; no edema Left lower extremity: full ROM; no edema Psych Mental Status: mental status grossly normal Speech and movement: Normal speech and movement present Affect: normal affect Attitude: cooperative Thought process: Normal thought process present Assessment and Plan Assessment & Plan (1) Viral syndrome: Code(s): B34.9 - Viral infection, unspecified Plan: Patient's signs symptoms most consistent with a viral syndrome, viral gastroenteritis. He is clinically improving without medication. Advised to stay well hydrated. (2) HTN (hypertension): Code(s): I10 - Essential (primary) hypertension Qualifiers: Hypertension type: essential hypertension Qualified Code(s): I10 - Essential (primary) hypertension Plan: Patient's blood pressure elevated today in office. Advised to start amlodipine 2.5 mg for better blood pressure control. Advised to monitor blood pressure at home with goal blood pressure to be below 140/90. Will see patient back in 6 weeks to evaluate blood pressure readings. Coding Level of Care Code Est Pt Level 4 (58899) Diagnoses Viral syndrome B34.9 Essential hypertension I10 Hypertension type: essential hypertension
== END 2023-10-15 10:26 | disposition home or self-care (01) ==
PROVIDERS: PCP Physician Assistant; Visit Provider Physician Assistant
DX: B34.9 Viral infection, unspecified (principal); I10 Essential (primary) hypertension
CPT/HCPCS: 99214

== ENCOUNTER 2023-12-24 08:09 | Outpatient (AMB) | payer MEDICARE, SELFPAY ==
[2023-12-24 08:13] VITALS: BP 140/80; PULSE 83; TEMP 37; O2SAT 96; BMI 37.7
--- NOTE | 2023-12-24 08:13 | AM.OFFWIN_ITS ---
Intake Vital Signs 12/24/23 08:13 Height 5 ft 4 in Weight 219 lb 8 oz BMI 37.7 BP 140/80 H Blood Pressure Location Rt brachial Position Sitting Pulse 83 Pulse Source Pulse Oximeter Temp 98.6 F Temp Source Oral Pulse Oximetry (%) 96 Oxygen Delivery Method Room Air Intake Visit Reasons: EP cough, headache, body ache (Masked) Intake Note: pt is here for cough, headache, fever with body ache for 4 days Patient Tobacco Use Status: Never used Tobacco Allergies Pneumonia vaccine Adverse Reaction (Intermediate, Uncoded 12/24/23 08:19) Itching Do you need a note to return to daycare/school/sports/work: Yes HPI HPI Comments History of Present Illness Details 73 y/o male patient who presents to walk in clinic with c/o cough, runny nose, body aches and body chills x 4 days. PFSH Medical History Osteoarthritis of right knee Former smoker Normal colonoscopy Surgical History History of lumbar surgery Family History Father CVD (cardiovascular disease) Mother CVD (cardiovascular disease) Family/Other Heart disease Social History Housing: House Alcohol intake: never Patient Tobacco Use Status: Never used Tobacco e-Cigarette/Vaping Use: Never Used service: No Current occupational status: retired Cognitive needs: No Hearing needs: No Vision needs: No Physical Exam Vital Signs: Last Vital Signs Temp 98.6 F 12/24/23 08:13 Pulse 83 12/24/23 08:13 BP 140/80 H 12/24/23 08:13 Pulse Ox 96 12/24/23 08:13 Oxygen Delivery Method Room Air 12/24/23 08:13 BMI result Body Mass Index 37.7 Const General: comfortable and no acute distress Nutritional Appearance: obese Orientation/consciousness: patient oriented x3 HEENT Head: Yes normocephalic Ears: external ears normal and TM's normal bilaterally General nose exam: Normal nasal mucous membranes and turbinates present Face and sinus: Yes sinuses nontender Mouth: moist mucous membranes Throat: Yes posterior oropharynx normal Resp Effort & Inspection: normal respiratory effort and able to speak in complete sentences Auscultation: clear to auscultation bilaterally, no crackles, no rales, no rhonchi and no wheezes Cardio Rate: regular rate Rhythm: regular rhythm Neuro General: patient oriented x3 Assessment & Plan Assessment & Plan (1) Allergic rhinitis: Code(s): J30.9 - Allergic rhinitis, unspecified Qualifiers: Allergic rhinitis seasonality: seasonal Allergic rhinitis trigger: pollen Qualified Code(s): J30.1 - Allergic rhinitis due to pollen Plan: - Claritin/Zyrtec BID - Acetaminophen for pain relief - OTC cough medicines - RTC if not better by Sat Medications: New cetirizine (Zyrtec) 10 mg PO DAILY PRN 60 tabs 0RF allergy symptoms J30.1 - Allergic rhinitis due to pollen benzonatate 100 mg PO TID 30 caps 0RF R05.9 - Cough, unspecified acetaminophen 1,000 mg (2 x 500 mg) PO Q6H PRN 30 caps 0RF pain (scale score 4- 6) R52 - Pain, unspecified Coding Level of Care Code Est Pt Level 3 (98813) Diagnoses Seasonal allergic rhinitis due to pollen J30.1 Allergic rhinitis seasonality: seasonal Allergic rhinitis trigger: pollen Time Spent (min) 15
== END 2023-12-24 09:20 | disposition home or self-care (01) ==
PROVIDERS: PCP Physician Assistant; Visit Provider Nurse Practitioner Family
DX: J30.1 Allergic rhinitis due to pollen (principal)
CPT/HCPCS: 99213

== ENCOUNTER 2024-02-29 10:22 | Day surgery (SDC) | payer MEDICARE, SELFPAY ==
[2024-02-25 14:55] VITALS: BMI 36.8
--- NOTE | 2024-02-26 09:12 | HO.ANESPROP2 ---
Documented by User: Mackenzie Casper NP 02/26/24 09:12 HPI - Anesthesia Eval Consult details Narrative: 74yo M for Colonoscopy PMFSH Active Problems Active Problems: All Active Problems Viral syndrome (Acute) HLD (hyperlipidemia) (Acute) Colon cancer screening (Acute) DMII (diabetes mellitus, type 2) (Acute) Obese (Acute) HTN (hypertension) (Acute) Annual physical exam (Acute) Past Medical History Medical History (Updated 02/25/24 @ 14:52 by Mer Boyd RN) Type 2 diabetes mellitus Elevated cholesterol HTN (hypertension) Osteoarthritis of right knee Former smoker Normal colonoscopy Family History Family History Father CVD (cardiovascular disease) Mother CVD (cardiovascular disease) Family/Other Heart disease Surgical History Surgical History (Updated 02/25/24 @ 14:54 by Mer Boyd RN) Hx of appendectomy H/O colonoscopy History of lumbar surgery Social History Social History Housing: House Alcohol intake: never Patient Tobacco Use Status: Never used Tobacco e-Cigarette/Vaping Use: Never Used Are you DNR?: No Advance Directives: No Advance Directives Information Provided: Yes Recently lost weight without trying: No Nutrition Risks: No Nutritional Risk Poor oral hygiene: No service: No Current occupational status: retired Cognitive needs: No Hearing needs: No Vision needs: No Meds Allergies Allergy/AdvReac Type Severity Reaction Status Date / Time pneumococcal vaccine Allergy Intermediate Itching Verified 02/25/24 14:42 Exam Height,Weight and Vital Signs: Height 5 ft 5 in Weight 100.244 kg Assessment and Plan Assessment Anesthesia Assessment: Chart Reviewed Documented by User: Parish Hinojosa MD 02/29/24 12:39 PMFSH Past Medical History Medical History (Updated 02/25/24 @ 14:52 by Mer Boyd RN) Type 2 diabetes mellitus Elevated cholesterol HTN (hypertension) Osteoarthritis of right knee Former smoker Normal colonoscopy Family History Family History Father CVD (cardiovascular disease) Mother CVD (cardiovascular disease) Family/Other Heart disease Family history of problems with anesthesia: No Surgical History Surgical History (Updated 02/25/24 @ 14:54 by Mer Boyd RN) Hx of appendectomy H/O colonoscopy History of lumbar surgery History of Problems with Anesthesia: No Social History Social History Housing: House Alcohol intake: never Patient Tobacco Use Status: Never used Tobacco e-Cigarette/Vaping Use: Never Used Are you DNR?: No Advance Directives: No Advance Directives Information Provided: Yes Recently lost weight without trying: No Nutrition Risks: No Nutritional Risk Poor oral hygiene: No service: No Current occupational status: retired Cognitive needs: No Hearing needs: No Vision needs: No Meds Allergies Allergy/AdvReac Type Severity Reaction Status Date / Time pneumococcal vaccine Allergy Intermediate Itching Verified 02/25/24 14:42 Exam Airway Mallampati Class: III TM Dist: >3cm Neck ROM: Full Assessment and Plan Assessment Anesthesia Assessment: Anesthesia Plan Discussed Final Anesthetic Review Family History of Problems with Anesthesia: No History of Problems with Anesthesia: No NPO: Yes ASA Class: III Final Preanesthetic Review: No Changes in Pt Med Stat, Meds/Allgs Chart Reviewed, Consent Obtained/Reviewed and Anes Risks/Benef Reviewed Patient Risk: Intermediate Procedure Risk: Low Anesthetic Plan Anesthetic Plan: MAC: Disposition: Standard PACU
[2024-02-29 12:23] VITALS: BP 180/96; PULSE 89; RESP 18; TEMP 36.6; O2SAT 95; BMI 35.8
[2024-02-29 12:31] VITALS: BMI 35.8
[2024-02-29 12:34] LABS: Glucose, Whole Blood 123 mg/dL (60-115)
[2024-02-29] MEDS: Lactated Ringers 1,000 ML 100 ML IVCONT (12:42)
[2024-02-29 14:35] VITALS: BP 112/70; PULSE 68; RESP 16; TEMP 36.6; O2SAT 97
--- NOTE | 2024-02-29 14:38 | PM.OP ---
Brief Operative Note Date of Service: 02/29/24 Pre-op diagnosis: Screening Post-op diagnosis: other (Colon polyp) Procedure: Colonoscopy to the cecum and TI with biopsy and removal of polyp Surgeon: Lavell Alba MD Anesthesia: MAC Was an Purchase Analyst used for this Procedure?: No Estimated blood loss (mL): 2.0 Pathology: other (A. Ascending colon polyp) Condition: stable Disposition: PACU
[2024-02-29 14:40] VITALS: BP 125/74; PULSE 71; RESP 18; O2SAT 97
[2024-02-29 14:45] VITALS: BP 144/82; PULSE 71; RESP 15; O2SAT 97
[2024-02-29 14:50] VITALS: BP 138/87; PULSE 71; RESP 15; TEMP 36.6; O2SAT 98
--- NOTE | 2024-02-29 16:05 | OP_ITS ---
DATE OF SERVICE: 02/29/2024 SURGEON: Lavell Alba MD INDICATIONS: The patient presents for evaluation of colorectal cancer screening. Full consent has been obtained from him for this, including risks of bleeding and perforation. PREOPERATIVE DIAGNOSIS: Colorectal cancer screening. POSTOPERATIVE DIAGNOSIS: PROCEDURE PERFORMED: Colonoscopy to cecum and terminal ileum with biopsy and removal of polyp. ESTIMATED BLOOD LOSS: COMPLICATIONS: ANESTHESIA: Monitored anesthesia care. ASSISTANTS: SPECIMENS: POSTOPERATIVE DIAGNOSES: Colorectal cancer screening, small colon polyp, diverticulosis, and internal hemorrhoids. DESCRIPTION OF PROCEDURE: The patient was placed in the left lateral decubitus position. The digital rectal exam revealed external hemorrhoids. The Olympus video pediatric colonoscope was then entered into the rectum and advanced easily to the cecum. Once in the cecum, I did identify normal-appearing cecal pouch with appendiceal orifice and a normal-appearing ileocecal valve. The terminal ileum was cannulated and appeared normal. Scope was withdrawn back in the colon. The entire cecum and ileocecal valve appeared normal. Scope was then slowly withdrawn assessing all mucosal surfaces carefully. Preparation was excellent. In the ascending colon, was a flat, approximately 4 mm polyp, which was biopsied and completely removed with the cold biopsy forceps. In the area of the transverse colon and sigmoid colon, were flat, less than 5 mm polyps, which were visualized, but ultimately not removed as they could not be relocated. However, they appeared to be quite small and benign. I did not visualize any other polyps, colitis, or angiodysplasias. There was a mild amount of sigmoid diverticulosis. In the rectum, scope was retroflexed, visualizing internal hemorrhoids, but no other pathology. The rectal mucosa appeared normal. Scope was straightened and withdrawn from the patient. He tolerated the procedure well and was returned to the recovery area in stable condition. IMPRESSION: 1. Small colon polyps. 2. Diverticulosis. 3. Internal hemorrhoids. 4. External hemorrhoids. PLAN: The results of the biopsy will be checked. Given these minimal findings and his age, I do not think we would need any further screening colonoscopies. He will, otherwise, see me on a p.r.n. basis. MD ELTON Loaiza/DUNG / [phone]
== END 2024-02-29 15:22 | disposition home or self-care (01) ==
PROVIDERS: PCP Physician Assistant; Visit Provider Internal Medicine
PROC: 0DJD8ZZ Inspection of Lower Intestinal Tract, Via Natural or Artificial Opening Endoscopic (ICD-10-PCS; CPT 45378; principal; 2024-02-29 12:20)
DX: Z12.11 Encounter for screening for malignant neoplasm of colon (principal); D12.2 Benign neoplasm of ascending colon; K57.30 Diverticulosis of large intestine without perforation or abscess without bleeding; K64.8 Other hemorrhoids; K64.4 Residual hemorrhoidal skin tags; E11.9 Type 2 diabetes mellitus without complications; I10 Essential (primary) hypertension; E78.5 Hyperlipidemia, unspecified; Z87.891 Personal history of nicotine dependence
CPT/HCPCS: 45380; 82947; 88305; J2704

== ENCOUNTER 2024-08-30 07:58 | Outpatient (AMB) | payer MEDICARE, SELFPAY ==
--- OUTSIDE RECORDS SUMMARY | 2024-08-30 08:00 | XMS_ITS ---
Author Organization [facility] Address [address] [place] [address] Care Team Providers Care Sonography Technologist Name Role Phone Adam Gao Primary Care Provider Unavailab Lavell Wesley Unavailable [phone] REASON FOR VISIT screening PROBLEMS Problem Type ICD Code Onset Dates Problem Status W/U Status Risk SNOMED Code Notes Problem Diverticulosis of large intestine without perforation or abscess without bleeding (K57.30) Active confirmed Diverticul ar disease of colon (087781380) Encounters Encounter Location Date Provider Diagnosis [facility] Outpatient [address] [place], [place] [id number] 02/29/2024 Lavell Alba Colon cancer scree iesha Z12.11 ; Colon polyps K63.5 ; Diverticulosis of large intestine without perforation or abscess without bleeding K57.30 and Other hemorrhoids K64.8 ASSESSMENTS Encounter Date Diagnosis Assessment Notes Treatment Notes Treatment Clinical Notes 02/29/2024 Colon cancer screening (ICD-10 - Z12.11) 02/29/2024 Colon polyps (ICD-10 - K63.5) 02/29/2024 Diverticulosis of large intestine without perforation or abscess without bleeding (ICD-10 - K57.30) 02/29/2024 Other hemorrhoids (ICD-10 - K64.8) PLAN OF TREATMENT No Information
--- OUTSIDE RECORDS SUMMARY | 2024-08-30 08:00 | XMS_ITS ---
Author Organization [facility] Address [address] [place] [address] Care Team Providers Care Green End Worker Name Role Phone Adam Gao Primary Care Provider Unavailab Lavell Wesley [phone] ALLERGIES No Known Allergies REASON FOR VISIT Patient presents today for a screening colon MEDICATIONS Medication SIG (Take, Route, Fr equency, Duration) Notes Start Date End Date Status Motrin prn Active Lisinopril 40 MG TAKE 1 TABLET BY CHARLEY TH EVERY DAY Oral for 90 Active SOCIAL HISTORY Tobacco Use: Social History Observation Description Date Details (start date - stop date) Never Smoker NA - NA Sex Assigned At : Social History Observation Description Sex Assigned At Unknown Tobacco Use/Smoking Question Answer Notes Patient is a nonsmoker Alcohol Screen Question Answer Notes Did you have a drink containing alcohol in the p ast year? No Points 0 Interpretation Negative PROBLEMS Problem Type ICD Code Onset Dates Problem Status W/U Status Risk SNOMED Code Notes Problem Colon cancer screening (Z12.11) Active confirmed Colon cancer screening (502241130) Problem Encounter for other preprocedural examination (Z01.818) Active confirmed Pre-procedure evaluation check (136417945) VITAL SIGNS BMI 36.77 kg/m2 01/05/2024 Blood pressure systolic 00 mm Hg 01/05/20 24 Blood pressure diastolic 00 mm Hg 024 Height 65 in 01/05/2024 Weight 221 lbs 01/05/2024 Encounters Encounter Location Date Provider Diagnosis [facility] [address] [place] [address] 01/05/2024 Lavell Alba Colon cancer screeni ng Z12.11 and Encounter for other preprocedural examination Z01.818 ASSESSMENTS Encounter Date Diagnosis Assessment Notes Treatment Notes Treatment Clinical Notes 01/05/2024 Colon cancer screening (ICD-10 - Z12.11) 01/05/2024 Encounter for other preprocedural examination (ICD-10 - Z01.818) PLAN OF TREATMENT Future Test Test Name Order Date COLONOSCOPY 01/05/2024 Next Appt Details Follow Up: prn, Reason: Progress Notes * Examination Category Sub-Category Detail Notes General Examination GENERAL APPEARANCE: pleasant , well nourished, well developed, in no acute distress EYES: sclera non-icteric NECK/THYROID: no cervical lymphade nopathy, neck supple HEART: S1, S2 normal LUNGS: clear to auscultatio n bilaterally ABDOMEN: normal bowel sounds, no guarding or rigidity, no hepatosplenomegaly, no masses palpable, soft, nontender, nondistended. NEUROLOGIC: alert and oriented SKIN: nonjaundiced, no spi ruperto angiomata. EXTREMITIES: no edema ORAL CAVITY: mucosa moist
--- OUTSIDE RECORDS SUMMARY | 2024-08-30 08:01 | XMS_ITS | Patient Health Record ---
Author Organization [facility] Address [address] [place] [address] Care Team Providers Care Time Recorder Name Role Phone Adam Gao Primary Care Provider Unavailab Lavell Wesley Unavailable [phone] ALLERGIES No Known Allergies RESULTS Component Value Reference Range Notes Pathology (Not yet reviewed by provider) Interpretation: Performing Lab:[facility], [address] [place] [phone] Notes/Report: Glucose, Whole Blood Reviewed date:02/29/2024 11:28:58 PM Interpretation: Performing Lab:[facility], [address] [place] [phone] Notes/Report: Glucose, Whole Blood 123 60-115 mg/dL METER # : [id number] REASON FOR REFERRAL No Information MEDICATIONS Medication SIG (Take, Route, Fr equency, Duration) Notes Start Date End Date Status Motrin prn Active Lisinopril 40 MG TAKE 1 TABLET BY EVERY DAY Oral for 90 Active SOCIAL HISTORY Sex Assigned At : Social History Observation Description Sex Assigned At Unknown PROBLEMS Problem Type ICD Code Onset Dates Problem Status W/U Status Risk SNOMED Code Notes Problem Colon cancer screening (Z12.11) Active confirmed Colon can cer screening (176152683) Problem Encounter for other preprocedural examination (Z01.818) Active confirmed Pre-procedure evaluation check (412569518) Problem Diverticulosis of large intestine without perforation or abscess without bleeding (K57.30) Active confirmed Diverticul ar disease of colon (259411751) VITAL SIGNS Blood pressure diastolic 00 mm Hg 01/05/2024 Height 65 in 01/05/2024 Blood pressure systolic 00 mm Hg 01/05/2024 Weight 221 lbs 01/05/2024 BMI 36.77 kg/m2 01/05/2024 Encounters Encounter Location Date Provider Diagnosis [facility] Outpatient [address] [place], [place] [phone] 02/29/2024 Lavell Alba Colon cancer screeni ng Z12.11 ; Colon polyps K63.5 ; Diverticulosis of large intestine without perforation or abscess without bleeding K57.30 and Other hemorrhoids K64.8 [facility] [address] [place] [address] 01/05/2024 Lavell Alba Colon cancer screeni ng Z12.11 and Encounter for other preprocedural examination Z01.818 ASSESSMENTS Encounter Date Diagnosis Assessment Notes Treatment Notes Treatment Clinical Notes 02/29/2024 Colon cancer screening (ICD-10 - Z12.11) 02/29/2024 Colon polyps (ICD-10 - K63.5) 01/05/2024 Colon cancer screening (ICD-10 - Z12.11) 01/05/2024 Encounter for other preprocedural examination (ICD-10 - Z01.818) 02/29/2024 Diverticulosis of large intestine without perforation or abscess without bleeding (ICD-10 - K57.30) 02/29/2024 Other hemorrhoids (ICD-10 - K64.8) PLAN OF TREATMENT Pending Test Test Name Order Date Pathology 02/29/2024 Future Test Test Name Order Date COLONOSCOPY 03/23/2013 COLONOSCOPY 01/05/2024 Insurance Providers Payer Name Payer Address Payer Phone Subscriber Number Group Number Insured Name Patient Relationship to Insured Coverage Start Date Coverage End Date [facility] [address] [place] [address] [id number] BRAD CALLAHAN Self - patient is the insured MEDICAL (GENERAL) HISTORY Medical History History ICD Code Colonoscopy 05/08/2003-no polyps-interna l hemorrhoids Denies MD,DM,CVA,Lung disease,renal dise ase Hypertension Prediabetic Colonoscopy 2012 negative except for hyp erplastic polyps Surgical History Surgery Date(Month/Year) Back surgery Appendectomy
--- OUTSIDE RECORDS SUMMARY | 2024-08-30 08:01 | XMS_ITS | Clinical Summary ---
Author Organization [facility] Address [address] [place] [address] Care Team Providers Care Volunteer Services Manager Name Role Phone Unavailable Primary Care Provider Unavailabl e Social History Tobacco Use Types Packs/Day Years Used Date Smoking Tobacco: Never Assessed Sex and Gender Information Value Date Recorded Sex Assigned at Not on file Legal Sex Male 2:31 PM EST Gender Identity Not on file Sexual Orientation Not on file Plan of Treatment Health Maintenance Due Date Last Done Comments DTaP,Tdap,and Td Vaccines (1 - Tdap) 1970 Pneumococcal Vaccine: 50+ Ye ars (1 of 1 - PCV) 2001 Zoster Vaccines (1 of 2) 2001 COVID-19 Vaccine (1 - 2023-2 5 season) 2024 Influenza Vaccine (#1) 2024 RSV Immunization Patients 60 + Years Old (1 - 1-dose 75+ series) 2026 HIB Vaccines Aged Out No longer eligi ble based on patient's age to complete this topic HPV Vaccines Aged Out No longer eligi ble based on patient's age to complete this topic Hepatitis A Vaccines Aged Out No long er eligible based on patient's age to complete this topic Hepatitis B Vaccines Aged Out No long er eligible based on patient's age to complete this topic IPV Vaccines Aged Out No longer eligi ble based on patient's age to complete this topic MMR Vaccines Aged Out No longer eligi ble based on patient's age to complete this topic Meningococcal ACWY Vaccine Aged Out N o longer eligible based on patient's age to complete this topic Meningococcal B Vacine Aged Out No lo nger eligible based on patient's age to complete this topic RSV Immunization Patients Un ruperto 20 months Aged Out No longer eligible b ased on patient's age to complete this topic Varicella Vaccines Aged Out No longer eligible based on patient's age to complete this topic
--- OUTSIDE RECORDS SUMMARY | 2024-08-30 08:01 | XMS_ITS ---
Author Organization [facility] Address [address] [place] [address] Care Team Providers Care Branch Lending Manager Name Role Phone Adam Gao Primary Care Provider Unavailab Lavell Wesley Unavailable [phone] REASON FOR VISIT waiting on pt call back to schedule appt Encounters Encounter Location Date Provider Diagnosis [facility] [address] [place] [address] 08/26/2023 Lavell Alba PLAN OF TREATMENT No Information
--- NOTE | 2024-08-30 08:08 | A.OFFPC_ITS ---
Vital Signs 08/30/24 08:09 Height 5 ft 5 in Weight 215 lb BMI 35.8 BP 166/88 H Blood Pressure Location Lt brachial Position Sitting Pulse 66 Pulse Source Pulse Oximeter Pulse Oximetry (%) 98 Oxygen Delivery Method Room Air Intake Visit Reasons: [facility] 08/25 Syncopal episode Insole And Outsole Splitter Required: No Accompanied by: Self / Same As Patient Allergies pneumococcal vaccine Allergy (Intermediate, Verified 08/30/24 08:18) Itching Medication List - Last Reconciled 08/30/24 by Adam Gao PA-C lisinopril 40 mg PO DAILY Tobacco use date assessed: 08/30/24 Fall risk assessment: 1 Fall in past year Last assessed Fall Risk: 08/30/24 Dental Screening Dental Screen Date: 08/30/24 Did you have a dental visit in the last 12 months?: No Did you have a dental problem in the last 6 months where you did not have access to dental care?: No Was dental information given to patient?: Patient has dentist HPI [facility] 08/25 Syncopal episode HPI Details José Luis is a 74-year-old male here today for an ER follow-up visit. Recently seen at [facility] for acute syncopal episode. --> He apparently syncopized while sitti ng at [facility], he fell back in his chair and was lower to the floor. There was loss of consciousness though no head trauma. He did report eating that morning. He had an episode of loose stool the morning of though was unsure if there was blood or black color. There was no reports of body convulsions. He reports during his syncopal episode he felt sweaty, clammy and nauseated.. He did report having sick contact at home as his granddaughter had upper respiratory infection. He underwent a myriad of testing done including EKG, troponins, urinalysis and blood work all was essentially normal. His hydrochlorothiazide was stopped while in hospital. Recommendations have been to do a Holter monitor her and perhaps a sleep study. .. CHRONIC MEDICAL CONDITIONS-- > HTN: Patient's blood pressure remains elevated today in office. He reports he does monitor his blood pressure at home though can not tell me actual readings. PLAN: Will add on amlodipine for better blood pressure control. .. Class 2 Obesity: Patient does understand his BMI is well over 35 and will work on being more physically active and adapting to better eating habits to reduce his weight .. Type 2 diabetes: Has been offered metformin though continues to decline my offers. Patient would like to work on lifestyle and decreasing carbohydrates in his diet.. [facility] Medical History Type 2 diabetes mellitus Elevated cholesterol HTN (hypertension) Osteoarthritis of right knee Former smoker Normal colonoscopy Surgical History Hx of appendectomy H/O colonoscopy History of lumbar surgery Family History Father CVD (cardiovascular disease) Mother CVD (cardiovascular disease) Family/Other Heart disease Social History Housing: House Alcohol intake: never Patient Tobacco Use Status: Never used Tobacco e-Cigarette/Vaping Use: Never Used Second Hand Smoke Exposure: No service: No Current occupational status: retired Cognitive needs: No Hearing needs: No Vision needs: No Questionnaire PHQ-9 Over the last 2 weeks, how often have you been bothered by any of the following problems? 1. Little interest or pleasure in doing things: not at all 2. Feeling down, depressed, or hopeless: not at all 3. Trouble falling or staying asleep, or sleeping too much: not at all 4. Feeling tired or having little energy: not at all 5. Poor appetite or overeating: not at all 6. Feeling bad about yourself - or that you are a failure or have let yourself or your family down: not at all 7. Trouble concentrating on things, such as reading the newspaper or watching television: not at all 8. Moving or speaking so slowly that other people could have noticed. Or the opposite - being so fidgety or restless that you have been moving around a lot more than usual: not at all 9. Thoughts that you would be better off or of hurting yourself in some way: not at all Total score: 0 Depression Screening Interpretation: Negative Depression Screening Done: Yes 94760 - PHQ-9 Billing: Yes Source: Developed by Drs. Lavell Lofton, Cheryl Sánchez, Avi Walker and colleagues, with an educational jose l from [employer]. Thrive Questionnaire Date Thrive assessed: 08/30/24 I am a: Patient What is your living situation today?: I have a steady place to live Within the past 12 months, did the food you bought not last and you didn't have the money to get more?: Never true Within the past 12 months, did you worry whether your food would run out before you got money to buy more?: Never true Do you have trouble paying for medicines?: No Do you have trouble getting transportation to medical appointments?: No Do you have trouble paying your heating and electricity bill?: No Do you have trouble taking care of your child, family member or friend?: No Do you have trouble with day-to-day activities such as bathing, preparing meals, shopping, managing finances, etc.?: No Are you currently unemployed and looking for a job?: No Are you interested in more education?: No Please select the resources that you would like help with: None Currently or been in a relationship where the following occur: No concerns reported THRIVE Score: 0 AUDIT C Alcohol Use Questionnaire (AUDIT-C) 1. How often do you have a drink containing alcohol?: Never Total Score: 0 RODRÍGUEZ-7 AMB Questionnaire RODRÍGUEZ-7 Date RODRÍGUEZ - 7 assessed: 08/30/24 Feeling nervous, anxious, or on edge: 0 = Not at all Not being able to stop or control worryin = Not at all Worrying too much about different things: 0 = Not at all Trouble relaxin = Not at all Being so restless that it is hard to sit still: 0 = Not at all Becoming easily annoyed or irritable: 0 = Not at all Feeling afraid as if something awful might happen: 0 = Not at all Total RODRÍGUEZ-7 score (0-4 normal; 5-9 mild; 10-14 moderate; 15-21 severe): 0 Source: Developed by Drs. Lavell Lofton, Cheryl Sánchez, Avi Walker and colleagues, with an educational jose l from [employer]. RODRÍGUEZ-7 Assessment Billing RODRÍGUEZ-7 Assessment Tool: RODRÍGUEZ-7 Assessment 04880 Physical exam (Primary Care) Tobacco/Smoking Status: Tobacco use Status Tobacco use date assessed 08/11/23 12/24/23 08:07 Patient Tobacco Use Status Never used Tobacco 02/29/24 14:37 e-Cigarette/Vaping Use Never Used 12/24/23 08:07 Depression Screening Interpretation: Negative Thrive Assessment: Date of Thrive Assessment Date Thrive assessed 08/11/23 12/24/23 08:07 Currently or been in a relationship where the following occur: No concerns reported Coding Level of Care Code Est Pt Level 4 (49735) Diagnoses Vasovagal syncope R55 Syncope type: vasovagal syncope Type 2 diabetes mellitus with hyperglycemia, without long-term current use of insulin E11.65 Diabetes mellitus complication status: with hyperglycemia 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 home use Essential hypertension I10 Hypertension type: essential hypertension Mixed hyperlipidemia E78.2 Hyperlipidemia type: mixed hyperlipidemia Class 2 obesity E66.812 Additional Codes PHQ-9 - 55103 - PHQ-9 Billing: Yes ([id number]) RODRÍGUEZ-7 Assessment Billing - RODRÍGUEZ-7 Assessment Tool: RODRÍGUEZ-7 Assessment 64010 ([id number]) Assessment & Plan Assessment & Plan (1) Syncopal episodes: Code(s): R55 - Syncope and collapse Category: Medical Qualifiers: Syncope type: vasovagal syncope Qualified Code(s): R55 - Syncope and collapse Plan: I discussed with the patient the likely cause of his syncope, emphasizing the need to rule out cardiac causes given his hypertension and diabetes history. I explained the importance of the Holter monitor for detecting any heart rhythm irregularities and offered a referral to a emergency vehicle operations instructor for further evaluation. We also talked about the value of a cardiac stress test and the role it plays in diagnosing any underlying heart conditions. The addition of amlodipine was discussed to help manage his high blood pressure, and I outlined potential risks, emphasizing that it is vital to avoid extremely low blood pressure. We reviewed dietary and exercise recommendations, and I encouraged regular monitoring of blood pressure at home. The patient was advised on appropriate salt and carbohydrate intake. (2) DMII (diabetes mellitus, type 2): Code(s): E11.9 - Type 2 diabetes mellitus without complications Category: Medical Qualifiers: Diabetes mellitus complication status: with hyperglycemia Diabetes mellitus intermodal owner operator truck driver insulin use: without intermodal owner operator truck driver use Qualified Code(s): E11.65 - Type 2 diabetes mellitus with hyperglycemia Plan: Patient continues to try to find his diet to control his type 2 diabetes. Will recheck his fasting blood sugar and A1c and consider metformin. Goal A1c is to be below 6.5 (3) HTN (hypertension): Code(s): I10 - Essential (primary) hypertension Category: Medical Qualifiers: Hypertension type: essential hypertension Qualified Code(s): I10 - Essential (primary) hypertension Plan: Patient's blood pressure remains elevated today in office. Will add on amlodipine 5 mg for better blood pressure control. Advised on monitoring blood pressure at home with goal blood pressure to be below 140 systolic preferably 120 systolic. (4) HLD (hyperlipidemia): Code(s): E78.5 - Hyperlipidemia, unspecified Category: Medical Qualifiers: Hyperlipidemia type: mixed hyperlipidemia Qualified Code(s): E78.2 - Mixed hyperlipidemia Plan: Will recheck fasting lipid panel. Goal LDL to be below 100. (5) Class 2 obesity: Code(s): E66.812 - Obesity, class 2 Category: Medical Plan: Patient does understand his BMI is over 35 and will work on being more physically active and adapting to better eating habits to reduce his weight. Orders: Orders ECG 3 day holter monitor Today R55 - Syncope and collapse Hemoglobin A1c Today E11.65 - Type 2 diabetes mellitus with hyperglycemia Complete Blood Count no Diff Today E11.65 - Type 2 diabetes mellitus with hyperglycemia Microalbumin, Random (w Creat) Today E11.65 - Type 2 diabetes mellitus with hyperglycemia Lipid Panel Today E78.2 - Mixed hyperlipidemia Comprehensive [place]. Panel Fast Today E11.65 - Type 2 diabetes mellitus with hyperglycemia Prostate Specific Antigen Scr Today I10 - Essential (primary) hypertension, Z12.5 - Encounter for screening for malignant neoplasm of prostate CA stress test Today R55 - Syncope and collapse Referrals Cardiology Referral R55 - Syncope and collapse Medications: New amlodipine 5 mg PO DAILY 90 days 90 tabs 1RF I10 - Essential (primary) hypertension
[2024-08-30 08:09] VITALS: BP 166/88; PULSE 66; O2SAT 98; BMI 35.8
== END 2024-08-30 08:35 | disposition home or self-care (01) ==
PROVIDERS: PCP Physician Assistant; Visit Provider Physician Assistant
DX: R55 Syncope and collapse (principal); E11.65 Type 2 diabetes mellitus with hyperglycemia; E66.812 Obesity, class 2; Z68.35 Body mass index [BMI] 35.0-35.9, adult; I10 Essential (primary) hypertension; E78.2 Mixed hyperlipidemia

== ENCOUNTER → 2024-08-30 07:58 | Outpatient (BNVA) | payer MEDICARE, SELFPAY | PROVIDERS: PCP Physician Assistant; Visit Provider Physician Assistant | DX: R55 Syncope and collapse (principal); E11.65 Type 2 diabetes mellitus with hyperglycemia; E78.2 Mixed hyperlipidemia; I10 Essential (primary) hypertension; E66.812 Obesity, class 2 | CPT/HCPCS: 96127; 99212 ==

== ENCOUNTER 2024-08-31 07:17 | Outpatient (REF) | payer MEDICARE, SELFPAY ==
--- OUTSIDE RECORDS SUMMARY | 2024-08-31 07:19 | XMS_ITS | Patient Health Record ---
Author Organization [facility] Address [address] [place] [address] Care Team Providers Care Account Support Manager Name Role Phone Adam Gao Primary Care Provider Unavailab Lavell Wesley Unavailable [phone] ALLERGIES No Known Allergies RESULTS Component Value Reference Range Notes Pathology (Not yet reviewed by provider) Interpretation: Performing Lab:[facility], [address] [place] [phone] Notes/Report: Glucose, Whole Blood Reviewed date:02/29/2024 11:28:58 PM Interpretation: Performing Lab:[facility], [address] [place] [phone] Notes/Report: Glucose, Whole Blood 123 60-115 mg/dL METER # : [id number] REASON FOR REFERRAL No Information MEDICATIONS Medication [...] (Z12.11) Active confirmed Colon can cer screening (478747798) Problem Encounter for other preprocedural examination (Z01.818) Active confirmed Pre-procedure evaluation check (909816709) Problem Diverticulosis of large intestine without perforation or abscess without bleeding (K57.30) Active confirmed Diverticul ar disease of colon (701778829) VITAL SIGNS Blood pressure diastolic 00 mm Hg 01/05/2024 Height 65 in 01/05/2024 Blood pressure systolic 00 mm Hg 01/05/2024 Weight 221 lbs 01/05/2024 BMI 36.77 kg/m2 01/05/2024 Encounters Encounter Location Date Provider Diagnosis [facility] [address]patient [address] [place], [place] [id number] 02/29/2024 Lavell Alba Colon cancer screeni ng Z12.11 ; Colon polyps K63.5 ; Diverticulosis of large intestine without perforation or abscess without bleeding K57.30 and Other hemorrhoids K64.8 [facility] [address] [place] [address] 01/05/2024 Lavell Alba Colon cancer screeni ng [...] Insured Coverage Start Date Coverage End Date [employer] [address] [place] [address] [id number] BRAD CALLAHAN Self - patient is the insured MEDICAL (GENERAL) HISTORY Medical History History ICD Code Colonoscopy 05/08/2003-no polyps-interna l hemorrhoids Denies [place],DM,CVA,Lung disease,renal dise ase Hypertension Prediabetic Colonoscopy 2012 negative except for hyp erplastic polyps Surgical History Surgery Date(Month/Year) Back surgery Appendectomy
--- OUTSIDE RECORDS SUMMARY | 2024-08-31 07:19 | XMS_ITS ---
Author Organization [facility] Address [address] [place] [address] Care Team Providers Care Network Specialist Name Role Phone Adam Gao Primary Care Provider Unavailab Lavell Wesley Unavailable [phone] REASON FOR VISIT waiting on pt call back to schedule appt Encounters Encounter Location Date Provider Diagnosis [facility] [address] [place] [address] 08/26/2023 Lavell Alba PLAN OF TREATMENT No Information
--- OUTSIDE RECORDS SUMMARY | 2024-08-31 07:19 | XMS_ITS | Clinical Summary ---
Author Organization [facility] Address [address] [place] [address] Care Team Providers Care Tray Room Worker Name Role Phone Unavailable Primary Care Provider [...]
--- OUTSIDE RECORDS SUMMARY | 2024-08-31 07:19 | XMS_ITS ---
Author Organization [facility] Address [address] [place] [address] Care Team Providers Care Manufacturing Plant Controller Name Role Phone Adam Gao Primary Care Provider Unavailab Lavell Wesley Unavailable [phone] REASON FOR VISIT screening PROBLEMS Problem Type ICD Code Onset Dates Problem Status W/U Status Risk SNOMED Code Notes Problem Diverticulosis of large intestine without perforation or abscess without bleeding (K57.30) Active confirmed Diverticul ar disease of colon (353133427) Encounters Encounter Location Date Provider Diagnosis [facility] Out[place] [address] [place], [place] [phone] 02/29/2024 Lavell Alba Colon cancer scree iesha [...]
--- OUTSIDE RECORDS SUMMARY | 2024-08-31 07:19 | XMS_ITS ---
Author Organization [facility] Address [address] [place] [address] Care Team Providers Care Welding Machine Setter Name Role Phone Adam Gao Primary Care Provider Unavailab Lavell Wesley [phone] ALLERGIES No Known Allergies REASON FOR VISIT [...] screening (Z12.11) Active confirmed Colon cancer screening (537619551) Problem Encounter for other preprocedural examination (Z01.818) Active confirmed Pre-procedure evaluation check (876393085) VITAL SIGNS BMI 36.77 kg/m2 01/05/2024 Blood pressure systolic 00 mm Hg 01/05/20 24 Blood pressure diastolic 00 mm Hg 024 Height 65 in 01/05/2024 Weight 221 lbs 01/05/2024 Encounters Encounter Location Date Provider Diagnosis [facility] [address] [place] [address] 01/05/2024 Lavell Alba Colon cancer screeni ng [...]
[2024-08-31 07:55] LABS: Hematocrit 40.8 % (42.0-52.0); Mean Corpuscular HGB Conc 34.3 g/dl (31.0-36.0); Mean Corpuscular Hemoglobin 31.2 pg (27.0-33.0); Mean Corpuscular Volume 90.9 fL (80.0-98.0); Mean Platelet Volume 9.1 fL (9.4-12.4); Platelet Count 209 X10*3/uL (160-400); Red Blood Count 4.49 X10*6/uL (4.60-5.80); Red Cell Distribution Width 12.3 % (11.0-16.0); White Blood Count 5.4 X10*3/uL (4.8-10.8)
[2024-08-31 08:00] LABS: Estimated Average Glucose 140 mg/dL; Hemoglobin A1C 169.7228 umol/L; Hemoglobin A1c % 6.5 % (<6.0); Total Hemoglobin (HGBA1C) 3610.3745 umol/L
[2024-08-31 08:22] LABS: Alanine Aminotransferase 49 U/L (0-40); Albumin Level 4.1 g/dL (3.5-5.0); Alkaline Phosphatase 91 U/L (39-117); Anion Gap 11 (12-20); Aspartate Amino Transferase 33 U/L (5-37); Bilirubin Total 0.8 mg/dL (0.0-1.0); Blood Urea Nitrogen 17 mg/dL (9-16); Calcium 8.9 mg/dL (8.4-10.2); Carbon Dioxide 29 mmol/L (22-29); Chloride 101 mmol/L (96-108); Cholesterol 121 mg/dL (<200); Estimated Glomerular Filt Rate > 60; Glucose Fasting 129 mg/dL (60-99); HDL Cholesterol 32 mg/dL (>40); LDL Cholesterol Calculated 74 mg/dL (<100); Potassium 4.1 mmol/L (3.3-5.1); Sodium 137 mmol/L (135-145); Total Protein 7.6 g/dL (6.5-8.0); Triglycerides 77 mg/dL (<150)
[2024-08-31 08:44] LABS: Prostate Specific Antigen Scr 0.69 ng/mL (<0.05-4.0)
[2024-08-31 08:57] LABS: Creatinine Urine 112.24 mg/dL; Microalbum/Creatinine Ratio Ur 43.6 ug/mg cr (<30)
== END 2024-08-31 07:18 | disposition home or self-care (01) ==
LOC: HO.LAB 07:17
PROVIDERS: PCP Physician Assistant; Visit Provider Physician Assistant
DX: E11.65 Type 2 diabetes mellitus with hyperglycemia (principal); E78.2 Mixed hyperlipidemia; Z12.5 Encounter for screening for malignant neoplasm of prostate; I10 Essential (primary) hypertension
CPT/HCPCS: 36415; 80053; 80061; 82043; 82570; 83036; 84153; 85027

== ENCOUNTER 2025-06-22 08:51 | Outpatient (AMB) | payer MEDICARE, SELFPAY ==
--- NOTE | 2025-06-22 08:53 | MHC.PC.OV ---
Vital Signs 06/22/25 08:54 Height 5 ft 5 in Weight 208 lb 6 oz BMI 34.7 BP 160/90 H Blood Pressure Location Lt brachial Position Sitting Respiration 16 Pulse 78 Pulse Source Pulse Oximeter Temp 97.1 F Temp Source Temporal Artery Scan Pulse Oximetry (%) 95 Oxygen Delivery Method Room Air Intake Visit Reasons: PHYSICAL Well Logger Required: No Accompanied by: Self / Same As Patient Allergies pneumococcal vaccine Allergy (Intermediate, Verified 06/22/25 09:06) Itching Medication List - Last Reconciled 06/22/25 by Adam Gao PA-C amlodipine 5 mg PO DAILY latanoprost 0.005% 1 drp ophthalmic (eye) QPM lisinopril 40 mg PO DAILY Tobacco use date assessed: 08/30/24 Fall risk assessment: No Falls in past year Last assessed Fall Risk: 06/22/25 Dental Screening Dental Screen Date: 08/30/24 HPI PHYSICAL HPI Details José Luis is a 75-year-old male here today for an annual physical. HTN: Patient's blood pressure remains elevated today in office. He reports he does monitor his blood pressure at home though can not tell me actual readings. PLAN: He will add on amlodipine for better blood pressure control. He is interested in in evaluate for obstructive sleep apnea as his family reports he snores and has apneic episodes during sleep. .. Class 1 Obesity: Has lost weight since last office visit. Patient does understand his BMI is well over 35 and will work on being more physically active and adapting to better eating habits to reduce his weight .. Type 2 diabetes: Today's A1c at 6.2 Has been offered metformin though continues to decline my offers. Patient would like to work on lifestyle and decreasing carbohydrates in his diet.. Vaccines: UTD COVID , Declines flu vaccine., up-to-date with tetanus and Declines pneumonia Vac. .. colonoscopy: Colonoscopy done in 2023- polyp found Tubular adenoma [facility] Medical History Type 2 diabetes mellitus Elevated cholesterol HTN (hypertension) Osteoarthritis of right knee Former smoker Normal colonoscopy Surgical History Hx of appendectomy H/O colonoscopy History of lumbar surgery Family History Father CVD (cardiovascular disease) Mother CVD (cardiovascular disease) Family/Other Heart disease Social History Housing: House Alcohol intake: never Patient Tobacco Use Status: Never used Tobacco e-Cigarette/Vaping Use: Never Used Second Hand Smoke Exposure: No service: No Current occupational status: retired Cognitive needs: No Hearing needs: No Vision needs: No Questionnaire PHQ-9 Over the last 2 weeks, how often have you been bothered by any of the following problems? 1. Little interest or pleasure in doing things: nearly every day 2. Feeling down, depressed, or hopeless: nearly every day 3. Trouble falling or staying asleep, or sleeping too much: several days 4. Feeling tired or having little energy: not at all 5. Poor appetite or overeating: not at all 6. Feeling bad about yourself - or that you are a failure or have let yourself or your family down: not at all 7. Trouble concentrating on things, such as reading the newspaper or watching television: not at all 8. Moving or speaking so slowly that other people could have noticed. Or the opposite - being so fidgety or restless that you have been moving around a lot more than usual: not at all 9. Thoughts that you would be better off or of hurting yourself in some way: not at all Total score: 7 Depression Screening Interpretation: Positive Depression Screening Follow-up: Existing condition and Declines treatment Depression Screening Done: Yes 79333 - PHQ-9 Billing: Yes Source: Developed by Drs. Lavell Lofton, Cheryl Sánchez, Avi Walker and colleagues, with an educational jose l from [employer] Thrive Questionnaire Date Thrive assessed: 06/22/25 I am a: Patient What is your living situation today?: I have a steady place to live Within the past 12 months, did the food you bought not last and you didn't have the money to get more?: Sometimes True Within the past 12 months, did you worry whether your food would run out before you got money to buy more?: Sometimes True Do you have trouble paying for medicines?: Yes Do you have trouble getting transportation to medical appointments?: No Do you have trouble paying your heating and electricity bill?: Yes Do you have trouble taking care of your child, family member or friend?: No Do you have trouble with day-to-day activities such as bathing, preparing meals, shopping, managing finances, etc.?: No Are you currently unemployed and looking for a job?: No Are you interested in more education?: No Please select the resources that you would like help with: None Currently or been in a relationship where the following occur: I choose not to answer THRIVE Score: 3 AUDIT C Alcohol Use Questionnaire (AUDIT-C) 1. How often do you have a drink containing alcohol?: Never 3. How often do you have six or more drinks on one occasion?: Never Total Score: 0 RODRÍGUEZ-7 AMB Questionnaire RODRÍGUEZ-7 Feeling nervous, anxious, or on edge: 1 = Several days Not being able to stop or control worryin = Several days Source: Developed by Drs. Lavell Lofton, Cheryl Sánchez, Avi Walker and colleagues, with an educational jose l from [employer] Review of Systems Const Denies body aches, Denies chills, Denies excessive sweating, Denies fatigue, Denies fever(s) and Denies headache(s) Eyes Denies blurry vision ENT Denies dysphagia, Denies vertigo, Denies dizziness, Denies headache(s), Denies hearing loss and Denies tinnitus Card Denies chest pain, Denies chest pain with activity, Denies syncope, Denies irregular heart rhythm and Denies dyspnea Resp Denies chest congestion, Denies cough, Denies hemoptysis, Denies dyspnea and Denies wheezing GI Denies abdominal pain, Denies melena, Denies hematochezia, Denies coffee ground emesis, Denies dysphagia, Denies diarrhea, Denies nausea and Denies vomiting Denies difficulty urinating, Denies dysuria, Denies urinary frequency, Denies urinary hesitancy and Denies urinary urgency Musc Denies arthralgias, Denies limited range of motion, Denies muscle cramps and Denies muscle weakness Skin/Breast Denies rash and Denies skin ulcer Neuro Denies Abnormal speech present, Denies confusion, Denies vertigo, Denies dizziness, Denies syncope, Denies headache(s), Denies memory loss and Denies seizure-like activity Psych Denies anxiety, Denies confusion, Denies depression, Denies memory loss, Denies panic attacks and Denies paranoia Endo Denies excessive sweating, Denies fatigue, Denies flushing, Denies polydipsia and Denies polyuria Aller/Immun Denies wheezing Physical exam (Primary Care) Vital Signs: Last Vital Signs Temp 97.1 F 06/22/25 08:54 Pulse 78 06/22/25 08:54 Resp 16 06/22/25 08:54 BP 160/90 H 06/22/25 08:54 Pulse Ox 95 06/22/25 08:54 Oxygen Delivery Method Room Air 06/22/25 08:54 BMI result Body Mass Index 34.7 BMI Assessment/Plan discussion: High BMI High, discussed plan: lifestyle, weight reduction, dietary and physical activity Tobacco/Smoking Status: Tobacco use Status Tobacco use date assessed 08/30/24 06/22/25 08:58 Patient Tobacco Use Status Never used Tobacco 06/22/25 08:58 e-Cigarette/Vaping Use Never Used 06/22/25 08:58 PHQ-9: PHQ-9 Score PHQ-9: Total score 7 06/22/25 09:28 Depression Screening Interpretation: Positive Depression Screening Follow-up: Existing condition and Declines treatment Thrive Assessment: Date of Thrive Assessment Date Thrive assessed 06/22/25 06/22/25 08:58 Currently or been in a relationship where the following occur: I choose not to answer Const General: cooperative, comfortable, no acute distress, alert and awake; No confusion Orientation/consciousness: oriented to person, oriented to place, patient oriented x3 and No confusion HENMT Head: Yes normocephalic Ears: external ears normal and TM's normal bilaterally Face and sinus: No sinus tenderness Mouth: Normal oral and palatal mucosa present and tongue normal Teeth and gingiva: dentition normal and gingiva normal Throat: Yes posterior oropharynx normal, Yes tonsils normal and Yes uvula midline Eyes Conjunctivae: conjunctivae normal Sclerae: sclerae normal Pupils: Equal, round and reactive pupils present EOM: EOMs intact bilaterally Direct Ophthalmoscopy: No no photophobia Neck Neck: Yes no lymphadenopathy, No tender and Yes no JVD Thyroid: Thyroid normal Carotids: no bruits Chest Chest palpation & inspection: no tenderness Resp Effort & Inspection: normal respiratory effort, no audible wheezes, not labored and no stridor Auscultation: no crackles, no rales, no rhonchi and no wheezes Cardio Jugular venous distension: no JVD Rate: regular rate, not bradycardic and not tachycardic Rhythm: regular rhythm Bruits: no carotid bruits Peripheral pulses: Peripheral pulses 2+ throughout GI Inspection: Yes normal to inspection, No abdominal wall ecchymosis and No visible herniation Palpation (GI): Soft to palpation, nontender, no guarding, not rigid and No hepatosplenomegaly present Auscultation: normoactive bowel sounds General: Yes no CVA tenderness Back/Spine/Pelvis Back: no CVA tenderness and No back tenderness Cervical Spine: cervical ROM normal Thoracic/Lumbar Spine: thoracic and lumbar spine normal to inspection, straight leg raise negative bilaterally, No thoraco-lumbar ROM limited and No lumbar spinal tenderness Skin Lesions: no lesions Rashes: no rashes Wounds: no wounds Neuro General: oriented to person, oriented to place, patient oriented x3, CN's II-XI intact bilaterally and No confusion Cranial nerves: Yes Equal, round and reactive pupils present and Yes Normal accommodation reflex present Cognition (Neuro): normal cognition Speech: No Abnormal speech present Gait exam (Neuro): Normal gait present Motor exam (neuro): 5/5 motor strength present throughout Extrem Right upper extremity: full ROM; no cyanosis Left upper extremity: full ROM; no cyanosis Right lower extremity: no edema Left lower extremity: no edema Psych Appearance: grossly normal Mental Status: mental status grossly normal Affect: normal affect Attitude: cooperative Thought process: Normal thought process present Results AMB Hemoglobin A1c AMB Hemoglobin A1c 6.2 % Last Edit by ARVIND Cardoza on 06/22/25 09:28 Results Reviewed Results Reviewed: Laboratory Last Values Hgb A1c (Clinic) 6.2 % (4.0-6.0) H 06/22/25 09:23 Coding Level of Care Code Est Pt Prev Care >65y(26241) Diagnoses Annual physical exam Z00.00 LANDY (obstructive sleep apnea) G47.33 Essential hypertension I10 Hypertension type: essential hypertension Type 2 diabetes mellitus with hyperglycemia, without long-term current use of insulin E11.65 Diabetes mellitus intermediate teacher insulin use: without intermediate teacher use Diabetes mellitus complication status: with hyperglycemia Class 1 obesity E66.811 Additional Codes PHQ-9 - 69599 - PHQ-9 Billing: Yes ([id number]) Assessment & Plan Assessment & Plan (1) Annual physical exam: Code(s): Z00.00 - Encounter for general adult medical examination without abnormal findings Category: Medical Plan: as per HPI (2) LANDY (obstructive sleep apnea): Code(s): G47.33 - Obstructive sleep apnea (adult) (pediatric) Category: Medical Plan: STOP BANG- questionnaire showing moderate risk for obstructive sleep apnea. Patient reporting signs and symptoms that can be consistent with the obstructive sleep apnea. Will send for home sleep study to confirm our suspicions. (3) HTN (hypertension): Code(s): I10 - Essential (primary) hypertension Category: Medical Qualifiers: Hypertension type: essential hypertension Qualified Code(s): I10 - Essential (primary) hypertension Plan: Patient's blood pressure elevated today in office. Will add on amlodipine 5 mg for better blood pressure control. Advised to continue monitoring blood pressure at home with goal blood pressure to be below 140/90 (4) DMII (diabetes mellitus, type 2): Code(s): E11.9 - Type 2 diabetes mellitus without complications Category: Medical Qualifiers: Diabetes mellitus intermediate teacher insulin use: without intermediate teacher use Diabetes mellitus complication status: with hyperglycemia Qualified Code(s): E11.65 - Type 2 diabetes mellitus with hyperglycemia Plan: Patient's type 2 diabetes well controlled with A1c today at 6.2. Will continue to treat with dietary and lifestyle modifications. (5) Class 1 obesity: Code(s): E66.811 - Obesity, class 1 Category: Medical Plan: Patient has been able to lose a few lb since last office visit. He does understand his BMI is over 30 will continue working on being more physically active and adapting to better eating habits to reduce his weight Orders: Orders AMB Hemoglobin A1c Today Z13.9 - Encounter for screening, unspecified Microalbumin, Random (w Creat) Today E11.65 - Type 2 diabetes mellitus with hyperglycemia RT home sleep study Today G47.33 - Obstructive sleep apnea (adult) (pediatric) Lipid Panel Today E78.2 - Mixed hyperlipidemia Complete Blood Count no Diff Today E11.65 - Type 2 diabetes mellitus with hyperglycemia Comprehensive [place]. Panel Fast Today E11.65 - Type 2 diabetes mellitus with hyperglycemia Hemoglobin A1c Today E11.65 - Type 2 diabetes mellitus with hyperglycemia Prostate Specific Antigen Scr Today E11.65 - Type 2 diabetes mellitus with hyperglycemia, Z12.5 - Encounter for screening for malignant neoplasm of prostate
[2025-06-22 08:54] VITALS: BP 160/90; PULSE 78; RESP 16; TEMP 36.2; O2SAT 95; BMI 34.7
== END 2025-06-22 09:30 | disposition home or self-care (01) ==
LOC: HO.HMCH 08:52
PROVIDERS: PCP Physician Assistant; Visit Provider Physician Assistant
DX: Z00.00 Encounter for general adult medical examination without abnormal findings (principal); E11.65 Type 2 diabetes mellitus with hyperglycemia; E66.811 Obesity, class 1; Z68.34 Body mass index [BMI] 34.0-34.9, adult; G47.33 Obstructive sleep apnea (adult) (pediatric); I10 Essential (primary) hypertension

== ENCOUNTER → 2025-06-22 08:51 | Outpatient (BNVA) | payer MEDICARE, SELFPAY | PROVIDERS: PCP Physician Assistant; Visit Provider Physician Assistant | DX: Z00.00 Encounter for general adult medical examination without abnormal findings (principal); G47.33 Obstructive sleep apnea (adult) (pediatric); I10 Essential (primary) hypertension; E11.65 Type 2 diabetes mellitus with hyperglycemia; E66.811 Obesity, class 1; Z13.31 Encounter for screening for depression; Z79.899 Other long term (current) drug therapy | CPT/HCPCS: 83036; 96127; 99397 ==